=== PATIENT | female | born 1945 | race Caucasian/White ===

== ENCOUNTER → 2017-04-22 | Outpatient (CLI) | payer MEDICARE ==
--- NOTE | 2017-04-24 06:48 | MM ---
Reason for exam: screening (asymptomatic). Last mammogram was performed 1 year and 1 month ago. History: Patient is postmenopausal. Excisional biopsy of the right breast, 1998. Benign excisional biopsy of the right breast, 1984. Physical Findings: A clinical breast exam by your physician is recommended on an annual basis and results should be correlated with mammographic findings. MG 3D Screening Mammo W/Cad Bilateral CC and MLO view(s) were taken. Prior study comparison: March 20, 2016, bilateral MG 3d screening mammo w/cad. March 11, 2015, bilateral MG screening mammo w CAD. February 04, 2014, bilateral MG screening mammo w CAD. The breast tissue is almost entirely fat. Finding: There are typically benign, diffuse linear, coarse cathie -like bilateral calcifications. ASSESSMENT: Benign, BI-RAD 2 RECOMMENDATION: Routine screening mammogram of both breasts in 1 year.
== END | disposition home or self-care (01) ==
LOC: RADMAMWWP 13:35
PROVIDERS: ATTEND Internal Medicine
DX: Z12.31 Encounter for screening mammogram for malignant neoplasm of breast (principal)
CPT/HCPCS: 77063; 77067

== ENCOUNTER → 2017-08-09 | Outpatient (CLI) | payer MEDICARE ==
--- NOTE | 2017-08-09 15:10 | XR ---
EXAMINATION TYPE: XR lumbosacral spine min 4V DATE OF EXAM: 08/09/2017 CLINICAL HISTORY: pain COMPARISON: NONE TECHNIQUE: Frontal, lateral, and oblique images of the lumbar spine are obtained. FINDINGS: There are 5 lumbar type vertebral bodies identified. The lumbar spine shows satisfactory alignment without evidence of acute fracture or dislocation. Vertebral body heights are within normal limits. Severe vacuum disks noted at L1-2 and L2-3. Endplate sclerosis as well as associated spondyl osis. Lower lumbar facet joint arthropathy. Grade 1 anterolisthesis L5 on S1 measuring 6 mm. The over lying soft tissue appears unremarkable. IMPRESSION: No acute fracture or dislocation is seen in the lumbar spine.ICD 10 NO FRACTURE, INITIAL EVALUATION
== END | disposition home or self-care (01) ==
LOC: RADXRYALE 14:43
PROVIDERS: ATTEND Internal Medicine
DX: M54.5 Low back pain (principal)
CPT/HCPCS: 72110

== ENCOUNTER 2017-08-20 22:00 | Emergency (ER) | payer MEDICARE ==
[2017-08-20] MEDS ORDERED: KETOROLAC 30 MG/ML 1 ML VIAL IVP STA (23:04)
--- NOTE | 2017-08-20 23:06 | ED ---
Back Pain HPI - General Chief Complaint: Back Pain/Injury Stated Complaint: back pain Time Seen by Provider: 08/20/17 22:37 Source: patient, RN notes reviewed Limitations: no limitations - History of Present Illness Initial Comments: This is a 72-year-old female who presents to the emergency department chief complaint of left-sided low back pain. Patient states that she's been experiencing low back pain for the past one month. She states that she followed up with her doctor and had a lumbar x-ray performed. She states she has been taking Flexeril and Naprosyn. She states that this has helped minimally. Denies any saddle paresthesias, loss of bladder or bowel function, numbness or tingling. Denies fevers or chills, chest pain or shortness breath, abdominal pain, nausea or vomiting, dysuria hematuria, diarrhea or constipation. She states the pain is positional, increasing with rotation and going from a sitting to standing position. She states that she has difficulty getting comfortable at night to sleep. - Related Data Home Medications Medication Instructions Recorded Confirmed Metoprolol Tartrate [Lopressor] 50 mg PO BID 08/20/17 08/20/17 Multivitamins, Thera [Multivitamin 1 tab PO DAILY 08/20/17 08/20/17 (formulary)] Naproxen 500 mg PO BID 08/20/17 08/20/17 PARoxetine HCL [PARoxetine HCL ER] 37.5 mg PO DAILY 08/20/17 08/20/17 Pantoprazole Sodium 40 mg PO DAILY 08/20/17 08/20/17 Pravastatin Sodium [Pravachol] 40 mg PO HS 08/20/17 08/20/17 Previous Rx's Medication Instructions Recorded traMADol HCL [Ultram] 50 mg PO Q4HR PRN #12 tab 08/21/17 Allergies Allergy/AdvReac Type Severity Reaction Status Date / Time celecoxib [From Celebrex] Allergy Rash/Hives Verified 08/20/17 23:10 Review of Systems ROS Statement: Those systems with pertinent positive or pertinent negative responses have been documented in the HPI. ROS Other: All systems not noted in ROS Statement are negative. Past Medical History Past Medical History: Hyperlipidemia, Hypertension Additional Past Medical History / Comment(s): back pain History of Any Multi-Drug Resistant Organisms: None Reported Past Surgical History: Cholecystectomy Additional Past Surgical History / Comment(s): shoulder, knee replace Past Psychological History: No Psychological Hx Reported, Anxiety Smoking Status: Former smoker Past Alcohol Use History: None Reported Past Drug Use History: None Reported General Exam - General Exam Comments Initial Comments: General: Awake and alert, well-developed; in no apparent distress. is at bedside. HEENT: Head atraumatic, normocephalic. Pupils are equal, round and reactive to light. Extraocular movements intact. Oropharynx moist without erythema or exudate. Neck: Supple. Normal ROM. Cardiovascular: Regular rate and rhythm. No murmurs, rubs or gallops. Chest symmetrical. Respiratory: Lungs clear to auscultation bilaterally. No wheezes, rales or rhonchi. Normal respiratory effort with no use of accessory muscles. Abdomen: Soft, non-tender, non-distended. No rigidity, rebound or guarding. Normal bowel sounds in all 4 quadrants. Musculoskeletal: Normal ROM, no tenderness bilateral upper and lower extremities. Ambulating normally. Normal range of motion of the spine. There is tenderness on palpation of left paraspinal muscles. Pedal pulses are 2+ equal and palpable bilaterally. Skin: Farber, warm and dry without rashes or lesions. Neurological: Alert and oriented x3. CN II-XII grossly intact. Speech is fluent and answers are appropriate. No focal neuro deficits. Psychiatric: Normal mood and affect. No overt signs of depression or anxiety noted. Limitations: no limitations Course Vital Signs 08/20/17 08/21/17 22:02 00:33 Temperature 97.8 F Pulse Rate 97 80 Respiratory 18 20 Rate Blood Pressure 147/76 165/81 O2 Sat by Pulse 98 96 Oximetry Medical Decision Making - Medical Decision Making This is a 72-year-old female presents to the emergency department with chief complaint of back pain for 1 month. Patient denies any specific injuries, trauma or falls. She states that she's been having left-sided back pain that is positional and increases with movement. On physical examination, patient does have tenderness on palpation of the left lumbar paraspinal muscles. She is neurovascularly intact. She was evaluated twice by Dr. Walter, her primary care provider and has been taking Flexeril and Naprosyn. She states that a lumbar x-ray was obtained and that she is scheduled for an MRI on the of this month. I did review the report for patient's lumbar spine x-ray and it did indicate no evidence for acute changes. Patient presents because she states that the pain has not been getting any better. CBC, CMP and UA were unremarkable. A computed tomography scan of the abdomen and pelvis was obtained and revealed a nonobstructing calculus of the left kidney, however no major findings to account for patient's back pain. It does appear the patient' s back pain is musculoskeletal in nature. This case was discussed with attending physician, Dr. Cuevas. Patient will be prescribed a 2 days worth of Ultram. On review of MAPS, patient was recently prescribed Ultram. I addressed this with the patient and she states that her prescription was never sent to the pharmacy so she has not been taking this medication. Recommended heating pad, rest and stretching exercises. Patient's vital signs are stable and she is in no acute distress. She'll be discharged home at this time. All questions answered. - Lab Data Result diagrams: 08/20/17 22:49 08/20/17 22:49 Lab Results 08/20/17 08/20/17 08/20/17 Range/Units 22:49 22:49 23:06 WBC 8.1 (3.8-10.6) k/uL RBC 4.39 (3.80-5.40) m/uL Hgb 14.3 (11.4-16.0) gm/dL Hct 42.4 (34.0-46.0) % MCV 96.5 (80.0-100.0) fL MCH 32.6 (25.0-35.0) pg MCHC 33.7 (31.0-37.0) g/dL RDW 13.8 (11.5-15.5) % Plt Count 220 (150-450) k/uL Neutrophils % 58 % Lymphocytes % 28 % Monocytes % 7 % Eosinophils % 3 % Basophils % 1 % Neutrophils # 4.7 (1.3-7.7) k/uL Lymphocytes # 2.3 (1.0-4.8) k/uL Monocytes # 0.6 (0-1.0) k/uL Eosinophils # 0.3 (0-0.7) k/uL Basophils # 0.1 (0-0.2) k/uL Sodium 141 (137-145) mmol/L Potassium 4.1 (3.5-5.1) mmol/L Chloride 105 (98-107) mmol/L Carbon Dioxide 24 (22-30) mmol/L Anion Gap 12 mmol/L BUN 23 H (7-17) mg/dL Creatinine 0.80 (0.52-1.04) mg/dL Est GFR (CKD-EPI)AfAm 85 (>60 ml/min/1.73 sqM) Est GFR (CKD-EPI)NonAf 74 (>60 ml/min/1.73 sqM) Glucose 97 (74-99) mg/dL Calcium 9.2 (8.4-10.2) mg/dL Total Bilirubin 0.6 (0.2-1.3) mg/dL AST 18 (14-36) U/L ALT 24 (9-52) U/L Alkaline Phosphatase 47 (38-126) U/L Total Protein 6.6 (6.3-8.2) g/dL Albumin 3.8 (3.5-5.0) g/dL Urine Color Yellow Urine Appearance Clear (Clear) Urine pH 6.0 (5.0-8.0) Ur Specific [place] 1.021 (1.001-1.035) Urine Protein Trace H (Negative) Urine Glucose (UA) Negative (Negative) Urine Ketones Negative (Negative) Urine Blood Negative (Negative) Urine Nitrite Negative (Negative) Urine Bilirubin Negative (Negative) Urine Urobilinogen 3.0 (<2.0) mg/dL Ur Leukocyte Esterase Small H (Negative) Urine RBC <1 (0-5) /hpf Urine WBC 1 (0-5) /hpf Ur Squamous Epith Cells 1 (0-4) /hpf Hyaline Casts 4 H (0-2) /lpf Urine Mucus Rare H (None) /hpf - Radiology Data Radiology results: report reviewed CT abdomen and pelvis with contrast impression: There is probably a nonobstructing calculus in the left kidney. Small right renal cortical cyst. Cholecystectomy. I do not see a cause for left lower quadrant pain. Disposition Clinical Impression: Low back pain Disposition: HOME SELF-CARE Condition: Good Instructions: Acute Low Back Pain (ED) Additional Instructions: Please take medications as prescribed. Please follow up with primary care provider within 1-2 days. Return to emergency department if symptoms should worsen or any concerns arise. Prescriptions: traMADol HCL [Ultram] 50 mg PO Q4HR PRN #12 tab PRN Reason: Pain Is patient prescribed a controlled substance at d/c from ED?: Yes If prescribed controlled substance>3 days was MAPS reviewed?: Yes When asked, does pt state using other controlled substances?: No Referrals: Veronica Walter MD [Primary Care Provider] - 1-2 days Time of Disposition: 00:43
[2017-08-20 23:14] LABS: Appearance,Urine Clear (Clear); Bilirubin,Urine Negative (Negative); Blood,Urine Negative (Negative); Color,Urine Yellow; Glucose,Urine (UA) Negative (Negative); Hyaline Casts,Urine 4 /lpf (0-2); Ketones,Urine Negative (Negative); Leukocyte Esterase,Urine Small (Negative); Mucus,Urine Rare /hpf; Nitrite,Urine Negative (Negative); Protein,Urine Trace (Negative); RBC,Urine <1 /hpf (0-5); Specific Gravity,Urine 1.021 (1.001-1.035); Squamous Epithelial Cell,Urine 1 /hpf (0-4); WBC,Urine 1 /hpf (0-5)
[2017-08-20 23:17] LABS: Albumin 3.8 g/dL (3.5-5.0); Basophils # (A) 0.1 k/uL (0-0.2); Basophils % (A) 1 %; Calcium 9.2 mg/dL (8.4-10.2); Eosinophils # (A) 0.3 k/uL (0-0.7); Eosinophils % (A) 3 %; HCT 42.4 % (34.0-46.0); HGB 14.3 gm/dL (11.4-16.0); Lymphocytes # (A) 2.3 k/uL (1.0-4.8); Lymphocytes % (A) 28 %; MCH 32.6 pg (25.0-35.0); MCHC 33.7 g/dL (31.0-37.0); MCV 96.5 fL (80.0-100.0); Mean Platelet Volume 6.4; Monocytes # (A) 0.6 k/uL (0-1.0); Monocytes % (A) 7 %; Neutrophils # (A) 4.7 k/uL (1.3-7.7); Neutrophils % (A) 58 %; Platelet Count 220 k/uL (150-450); Potassium 4.1 mmol/L (3.5-5.1); RBC 4.39 m/uL (3.80-5.40); RDW 13.8 % (11.5-15.5); Total Bilirubin 0.6 mg/dL (0.2-1.3); Total Protein 6.6 g/dL (6.3-8.2); WBC 8.1 k/uL (3.8-10.6)
[2017-08-20] MEDS ORDERED: RX INFO: IV CONTRAST WAS GIVEN 1 EACH MISC MISCELLANE PRN (23:29)
--- NOTE | 2017-08-21 00:21 | CT ---
EXAMINATION TYPE: CT abdomen pelvis w con DATE OF EXAM: 08/20/2017 COMPARISON: NONE HISTORY: Back pain, Left flank pain CT DLP: 1907.00 mGycm Automated exposure control for dose reduction was used. TECHNIQUE: Helical acquisition of images was performed from the lung bases through the pelvis. CONTRAST: Performed without Oral Contrast and with IV Contrast, patient injected with 100 mL of Isovue 300. FINDINGS: Lung bases are clear. There is no pleural effusion. Heart size is normal. Liver spleen pancreas appear normal. There are clips from cholecystectomy. Bile ducts are not dilated . There is no adrenal mass. The kidneys show satisfactory contrast opacification. There is no hydroneph rosis. There is possible 5 mm calculus in the interpolar left kidney. Abdominal aorta is atheromatous . There is no retroperitoneal adenopathy. There is no ascites. There is no sign of free air. Bladder distends smoothly. There is no evidence of a pelvic mass. Appendix appears normal. I see no bony destructive process. There are some spondylotic changes in the thoracic and lumbar spine. There is a 2 cm cortical cyst on the lower pole right kidney. IMPRESSION: THERE IS PROBABLY A NONOBSTRUCTING CALCULUS IN THE LEFT KIDNEY. SMALL RIGHT RENAL CORTICAL CYST. CHOL ECYSTECTOMY. I DO NOT SEE A CAUSE FOR LEFT LOWER QUADRANT PAIN.
[2017-08-21] MEDS ORDERED: KETOROLAC 30 MG/ML 1 ML VIAL IVP STA (00:24)
[2017-08-21 00:34] VITALS: BP 165/81; PULSE 80; RESP 20
[2017-08-21 00:36] VITALS: TEMP 98.7
== END 2017-08-21 00:50 | disposition home or self-care (01) ==
LOC: EC 22:00
DX: M54.5 Low back pain (principal); N28.1 Cyst of kidney, acquired; N20.0 Calculus of kidney; E78.5 Hyperlipidemia, unspecified; I10 Essential (primary) hypertension; F41.9 Anxiety disorder, unspecified; Z87.891 Personal history of nicotine dependence; Z79.1 Long term (current) use of non-steroidal anti-inflammatories (NSAID); Z79.899 Other long term (current) drug therapy; Z90.49 Acquired absence of other specified parts of digestive tract; Z88.6 Allergy status to analgesic agent
CPT/HCPCS: 36415; 80053; 85025; 81001; 74177; 99284; 96374; 96376; J1885 ×2; Q9967

== ENCOUNTER → 2018-05-20 | Outpatient (CLI) | payer MEDICARE ==
--- NOTE | 2018-05-21 10:02 | MM ---
Reason for exam: screening (asymptomatic). Last mammogram was performed 1 year and 1 month ago. History: Patient is postmenopausal. Excisional biopsy of the right breast, 1998. Benign excisional biopsy of the right breast, 1984. Physical Findings: A clinical breast exam by your physician is recommended on an annual basis and results should be correlated with mammographic findings. MG 3D Screening Mammo W/Cad Bilateral CC and MLO view(s) were taken. Prior study comparison: April 22, 2017, bilateral MG 3d screening mammo w/cad. March 20, 2016, bilateral MG 3d screening mammo w/cad. There are scattered fibroglandular densities. Secretory calcifications seen bilaterally. There is no discrete abnormality. No significant changes when compared with prior studies. ASSESSMENT: Benign, BI-RAD 2 RECOMMENDATION: Routine screening mammogram of both breasts in 1 year.
== END | disposition home or self-care (01) ==
LOC: RADMAMWWP 14:30
PROVIDERS: ATTEND Internal Medicine
DX: Z12.31 Encounter for screening mammogram for malignant neoplasm of breast (principal)
CPT/HCPCS: 77063; 77067

== ENCOUNTER → 2019-06-10 | Outpatient (CLI) | payer MEDICARE ==
--- NOTE | 2019-06-12 13:19 | MM ---
Reason for exam: screening (asymptomatic). Last mammogram was performed 1 year and 1 month ago. History: Patient is postmenopausal. Excisional biopsy of the right breast, 1998. Benign excisional biopsy of the right breast, 1984. Physical Findings: A clinical breast exam by your physician is recommended on an annual basis and results should be correlated with mammographic findings. MG 3D Screening Mammo W/Cad Bilateral CC and MLO view(s) were taken. Prior study comparison: May 20, 2018, bilateral MG 3d screening mammo w/cad. April 22, 2017, bilateral MG 3d screening mammo w/cad. There are scattered fibroglandular densities. There is chronic nodularity in the left breast. Extensive benign secretory calcifications. No significant changes when compared with prior studies. ASSESSMENT: Negative, BI-RAD 1 RECOMMENDATION: Routine screening mammogram of both breasts in 1 year.
== END | disposition home or self-care (01) ==
LOC: RADMAMWWP 14:59
PROVIDERS: ATTEND Internal Medicine
DX: Z12.31 Encounter for screening mammogram for malignant neoplasm of breast (principal)
CPT/HCPCS: 77063; 77067

== ENCOUNTER 2020-06-10 13:38 | Emergency (ER) | payer MEDICARE ==
[2020-06-10] MEDS ORDERED: MORPHINE SULFATE 4 MG/ML SYRINGE IV STA (13:47)
[2020-06-10] MEDS ORDERED: SODIUM CHLORIDE 0.9% 1,000 ML IV STA (13:47)
--- NOTE | 2020-06-10 14:04 | ED ---
Abdominal Pain HPI - General Chief Complaint: Abdominal Pain Stated Complaint: Kidney stone Source: patient, RN notes reviewed Mode of arrival: ambulatory - History of Present Illness Initial Comments: Patient is a 74-year-old female presents to emergency department with diagnosis of kidney stone on 06/05/2020. She noted that she was fine for a couple days but then the pain comes and goes. She noted that currently she is a 5 out of 10 and did take pain medication as morning. She denied any nausea vomiting but just wasn't sure if this was a normal course for delivery of a kidney stone. She denied any discomfort or distress while sitting up in the bed during the exam and interview. She denied any chest pain shortness of breath nausea vomiting diarrhea constipation fever fatigue chills - Related Data Home Medications Medication Instructions Recorded Confirmed Metoprolol Tartrate [Lopressor] 50 mg PO BID 08/20/17 08/20/17 Multivitamins, Thera [Multivitamin 1 tab PO DAILY 08/20/17 08/20/17 (formulary)] Naproxen 500 mg PO BID 08/20/17 08/20/17 PARoxetine HCL [PARoxetine HCL ER] 37.5 mg PO DAILY 08/20/17 08/20/17 Pantoprazole Sodium 40 mg PO DAILY 08/20/17 08/20/17 Pravastatin Sodium [Pravachol] 40 mg PO HS 08/20/17 08/20/17 Previous Rx's Medication Instructions Recorded traMADol HCL [Ultram] 50 mg PO Q4HR PRN #12 tab 08/21/17 Ibuprofen [Motrin] 800 mg PO Q8HR PRN #30 tab 06/10/20 Allergies Allergy/AdvReac Type Severity Reaction Status Date / Time celecoxib [From Celebrex] Allergy Rash/Hives Verified 06/10/20 13:43 Review of Systems ROS Statement: Those systems with pertinent positive or pertinent negative responses have been documented in the HPI. ROS Other: All systems not noted in ROS Statement are negative. Past Medical History Past Medical History: Hyperlipidemia, Hypertension Additional Past Medical History / Comment(s): back pain, kidney stone History of Any Multi-Drug Resistant Organisms: None Reported Past Surgical History: Cholecystectomy Additional Past Surgical History / Comment(s): shoulder, knee replace Past Psychological History: No Psychological Hx Reported, Anxiety Smoking Status: Never smoker Past Alcohol Use History: None Reported Past Drug Use History: None Reported General Exam General appearance: alert, in no apparent distress, obese Head exam: Present: atraumatic, normocephalic, normal inspection Eye exam: Present: normal appearance, PERRL, EOMI. Absent: scleral icterus, conjunctival injection, periorbital swelling Neck exam: Present: normal inspection. Absent: tenderness, meningismus, lym phadenopathy Respiratory exam: Present: normal lung sounds bilaterally. Absent: respiratory distress, wheezes, rales, rhonchi, stridor Cardiovascular Exam: Present: regular rate, normal rhythm, normal heart sounds. Absent: systolic murmur, diastolic murmur, rubs, gallop, clicks GI/Abdominal exam: Present: soft, normal bowel sounds. Absent: distended, tenderness, guarding, rebound, rigid Extremities exam: Present: normal inspection, full ROM, normal capillary refill. Absent: tenderness, pedal edema, joint swelling, calf tenderness Back exam: Present: normal inspection, CVA tenderness (L) Psychiatric exam: Present: normal affect, normal mood Skin exam: Present: warm, dry, intact, normal color. Absent: rash Course Vital Signs 06/10/20 13:40 Temperature 98.4 F Pulse Rate 79 Respiratory 22 Rate Blood Pressure 151/104 O2 Sat by Pulse 96 Oximetry Medical Decision Making - Medical Decision Making 74-year-old female complaining of kidney stone pain in the left flank. Labs, 1 L normal saline, 4 mg of morphine, KUB ordered. X-ray: Unremarkable Case discussed with Dr. Mosqueda, decided was located discharge patient home with conservative management. - Lab Data Result diagrams: 06/10/20 14:12 06/10/20 14:12 Lab Results 06/10/20 06/10/20 06/10/20 Range/Units 14:12 14:12 15:05 WBC 13.7 H (3.8-10.6) k/uL RBC 4.09 (3.80-5.40) m/uL Hgb 13.1 (11.4-16.0) gm/dL Hct 39.3 (34.0-46.0) % MCV 96.2 (80.0-100.0) fL MCH 32.0 (25.0-35.0) pg MCHC 33.2 (31.0-37.0) g/dL RDW 13.5 (11.5-15.5) % Plt Count 236 (150-450) k/uL MPV 7.1 Neutrophils % 66 % Lymphocytes % 19 % Monocytes % 8 % Eosinophils % 5 % Basophils % 1 % Neutrophils # 9.0 H (1.3-7.7) k/uL Lymphocytes # 2.6 (1.0-4.8) k/uL Monocytes # 1.1 H (0-1.0) k/uL Eosinophils # 0.7 (0-0.7) k/uL Basophils # 0.1 (0-0.2) k/uL Sodium 140 (137-145) mmol/L Potassium 4.3 (3.5-5.1) mmol/L Chloride 103 (98-107) mmol/L Carbon Dioxide 25 (22-30) mmol/L Anion Gap 12 mmol/L BUN 15 (7-17) mg/dL Creatinine 0.87 (0.52-1.04) mg/dL Est GFR (CKD-EPI)AfAm 76 (>60 ml/min/1.73 sqM) Est GFR (CKD-EPI)NonAf 66 (>60 ml/min/1.73 sqM) Glucose 101 H (74-99) mg/dL Calcium 9.2 (8.4-10.2) mg/dL Total Bilirubin 0.5 (0.2-1.3) mg/dL AST 20 (14-36) U/L ALT 13 (4-34) U/L Alkaline Phosphatase 55 (38-126) U/L Total Protein 7.4 (6.3-8.2) g/dL Albumin 4.3 (3.5-5.0) g/dL Urine Color Yellow Urine Appearance Clear (Clear) Urine pH 6.0 (5.0-8.0) Ur Specific [place] 1.022 (1.001-1.035) Urine Protein 1+ H (Negative) Urine Glucose (UA) Negative (Negative) Urine Ketones Negative (Negative) Urine Blood Negative (Negative) Urine Nitrite Negative (Negative) Urine Bilirubin Negative (Negative) Urine Urobilinogen 2.0 (<2.0) mg/dL Ur Leukocyte Esterase Large H (Negative) Urine RBC 15 H (0-5) /hpf Urine WBC 39 H (0-5) /hpf Ur Squamous Epith Cells 1 (0-4) /hpf Hyaline Casts 1 (0-2) /lpf Urine Mucus Occasional H (None) /hpf - Radiology Data Radiology results: report reviewed, image reviewed Chest Xray: Nonspecific abdomen, suspicious renal or ureteral stones are not identified. Disposition Clinical Impression: Nephrolithiasis, Left flank pain Disposition: HOME SELF-CARE Condition: Stable Instructions (If sedation given, give patient instructions): Kidney Stones (E D), Abdominal Pain (ED) Additional Instructions: Please return to the Emergency Department if symptoms worsen or any other concerns. Continue to increase oral fluid intake. Follow-up with primary care 1-2 days. Kidney stone may take several days to couple weeks to pass. Management with [id number] pain medication. Prescriptions: Ibuprofen [Motrin] 800 mg PO Q8HR PRN #30 tab PRN Reason: Pain Is patient prescribed a controlled substance at d/c from ED?: No Referrals: Veronica Walter MD [Primary Care Provider] - 1-2 days Time of Disposition: 15:27
[2020-06-10] MEDS ORDERED: ONDANSETRON 4 MG/2 ML VIAL IVP STA (14:09)
--- NOTE | 2020-06-10 14:32 | XR ---
EXAMINATION TYPE: XR KUB DATE OF EXAM: 06/10/2020 COMPARISON: None INDICATION: Abdomen pain left-sided kidney stone TECHNIQUE: Single view abdomen upright view FINDINGS: There is nonspecific bowel gas pattern. No suspicious air-fluid levels or differential air-fluid leve ls are evident. No free air is evident. Psoas margins are normal. No organomegaly is present. Cholecystectomy clips in the right upper quadrant. Costochondral cartilage calcification is present. Degenerative narrowing of the bilateral hips is evident. There is a scoliosis and degenerative disc c hanges through the lumbar spine. IMPRESSION: 1. Nonspecific abdomen. 2. Suspicious renal or ureteral stones are not identified.
[2020-06-10 14:45] LABS: Basophils # (A) 0.1 k/uL (0-0.2); Basophils % (A) 1 %; Eosinophils # (A) 0.7 k/uL (0-0.7); Eosinophils % (A) 5 %; HCT 39.3 % (34.0-46.0); HGB 13.1 gm/dL (11.4-16.0); Lymphocytes # (A) 2.6 k/uL (1.0-4.8); Lymphocytes % (A) 19 %; MCHC 33.2 g/dL (31.0-37.0); MCV 96.2 fL (80.0-100.0); Mean Platelet Volume 7.1; Monocytes # (A) 1.1 k/uL (0-1.0); Monocytes % (A) 8 %; Neutrophils % (A) 66 %; Platelet Count 236 k/uL (150-450); RBC 4.09 m/uL (3.80-5.40); RDW 13.5 % (11.5-15.5); WBC 13.7 k/uL (3.8-10.6)
[2020-06-10 15:04] LABS: Albumin 4.3 g/dL (3.5-5.0); Calcium 9.2 mg/dL (8.4-10.2); Potassium 4.3 mmol/L (3.5-5.1); Total Bilirubin 0.5 mg/dL (0.2-1.3); Total Protein 7.4 g/dL (6.3-8.2)
[2020-06-10 15:17] LABS: Appearance,Urine Clear (Clear); Bilirubin,Urine Negative (Negative); Blood,Urine Negative (Negative); Color,Urine Yellow; Glucose,Urine (UA) Negative (Negative); Hyaline Casts,Urine 1 /lpf (0-2); Ketones,Urine Negative (Negative); Leukocyte Esterase,Urine Large (Negative); Mucus,Urine Occasional /hpf; Nitrite,Urine Negative (Negative); Protein,Urine 1+ (Negative); RBC,Urine 15 /hpf (0-5); Specific Gravity,Urine 1.022 (1.001-1.035); Squamous Epithelial Cell,Urine 1 /hpf (0-4); WBC,Urine 39 /hpf (0-5)
[2020-06-10 15:50] VITALS: BP 154/74; PULSE 78; RESP 16; TEMP 97
== END 2020-06-10 15:48 | disposition home or self-care (01) ==
LOC: EC 13:38
DX: N20.0 Calculus of kidney (principal); E78.5 Hyperlipidemia, unspecified; I10 Essential (primary) hypertension; Z79.1 Long term (current) use of non-steroidal anti-inflammatories (NSAID); Z79.899 Other long term (current) drug therapy; Z87.442 Personal history of urinary calculi; Z88.6 Allergy status to analgesic agent
CPT/HCPCS: 99284; 96374; 96375; 36415; 80053; 85025; 81001; 87086; 74018; J2270; J2405

== ENCOUNTER 2020-06-14 12:22 | Day surgery (SDC) | payer MEDICARE ==
[2020-06-13 11:19] VITALS: BMI 39.1
--- NOTE | 2020-06-13 20:05 | P.GSHP ---
History of Present Illness H&P Date: 06/13/20 74 yo female sent from [place] because of an 8 mm proximal left ureteral stone When she was seen in the office last week her pain was minimal She was interested in eswl but the pain returned over the weekend. She wishes treatment and therefore we will do a left ureteroscopy with laser lithotripsy. the risks have been discussed. - Constitutional Constitutional: Denies chills, Denies fever - EENT Eyes: denies blurred vision, denies pain Ears, nose, mouth and throat: Denies headache, Denies sore throat - Cardiovascular Cardiovascular: Denies chest pain, Denies shortness of breath - Respiratory Respiratory: Denies cough, Denies 7 - Gastrointestinal Gastrointestinal: Denies abdominal pain, Denies diarrhea, Denies nausea, Denies vomiting - Genitourinary (Female) Genitourinary: Denies dysuria, Denies hematuria - Genitourinary (Male) Genitourinary: Denies dysuria, Denies hematuria - Musculoskeletal Musculoskeletal: Denies myalgias - Integumentary Integumentary: Denies pruritus, Denies rash - Neurological Neurological: Denies numbness, Denies weakness - Psychiatric Psychiatric: Denies anxiety, Denies depression - Endocrine Endocrine: Denies fatigue, Denies weight change Past Medical History Past Medical History: COPD, Hyperlipidemia, Hypertension, Osteoarthritis (OA) Additional Past Medical History / Comment(s): back pain, kidney stone. History of Any Multi-Drug Resistant Organisms: None Reported Past Surgical History: Cholecystectomy Additional Past Surgical History / Comment(s): Bilat. shoulder, bilat knee replace, carpal tunnel Past Anesthesia/Blood Transfusion Reactions: No Reported Reaction Smoking Status: Never smoker - Past Family History Mother Family Medical History: No Reported History Sister(s) Family Medical History: Pulmonary Embolus Brother(s) Family Medical History: Cancer Medications and Allergies Home Medications Medication Instructions Recorded Confirmed Type Metoprolol Tartrate [Lopressor] 50 mg PO BID 08/20/17 06/13/20 History Multivitamins, Thera [Multivitamin 1 tab PO DAILY 08/20/17 06/13/20 History (formulary)] Naproxen 500 mg PO BID 08/20/17 06/13/20 History PARoxetine HCL [PARoxetine HCL ER] 37.5 mg PO DAILY 08/20/17 06/13/20 History Pantoprazole Sodium 40 mg PO DAILY 08/20/17 06/13/20 History Pravastatin Sodium [Pravachol] 40 mg PO HS 08/20/17 06/13/20 History traMADol HCL [Ultram] 50 mg PO Q4HR PRN #12 tab 08/21/17 06/13/20 Rx Ibuprofen [Motrin] 800 mg PO Q8HR PRN #30 tab 06/10/20 06/13/20 Rx Inhaler(Unknown Name) 1 dose INHALATION DAILY PRN 06/13/20 06/13/20 History Allergies Allergy/AdvReac Type Severity Reaction Status Date / Time celecoxib [From Celebrex] Allergy Rash/Hives Verified 06/13/20 10:59 Surgical - Exam - General mild distress well developed, well nourished - Eyes PERRL - ENT no hearing loss - Neck trachea midline - Respiratory normal expansion, normal respiratory effort - Cardiovascular Rhythm: regular - Abdomen Abdomen: soft, non tender - Integumentary no rash, no growths - Neurologic normal coordination, normal sensation - Musculoskeletal normal gait, normal posture - Psychiatric oriented to time, oriented to person, oriented to place, speech is normal, memory intact Results - Imaging Abdominal x-ray: report reviewed, image reviewed CT scan - abdomen: report reviewed, image reviewed CT scan - pelvis: report reviewed, image reviewed Assessment and Plan Assessment: Impression: Left ureteral stone with obstrution and pain Plan. Left ureteroscopy with laser lithotripsy and possible stent placement
[~2020-06-14 12:22] MED LIST: AMPICILLIN 1,000 MG in SODIUM CHLORIDE 0.9% 50 ML IVPB PRN; DEXAMETHASONE SOD PHOSPHATE 4 MG/ML 1 ML VIAL IV ONE; GENTAMICIN 120 MG in SODIUM CHLORIDE 0.9% 100 ML IVPB PRN; LACTATED RINGERS 1,000 ML IV SCH; LIDOCAINE 1% (10MG/ML) FOR IV START INTRADERMA PRN; ONDANSETRON 4 MG/2 ML VIAL IVP ONE
--- NOTE | 2020-06-14 13:08 | XR ---
EXAMINATION TYPE: XR KUB DATE OF EXAM: 06/14/2020 12:58 PM CLINICAL HISTORY: Left ureter calculus. TECHNIQUE: Two Upright KUB images of the abdomen are obtained. COMPARISON: Abdominal x-ray [address] abdomen and pelvis August 20, 2017. FINDINGS: No renal calculi clearly seen similar to recent x-ray. Cholecystectomy clips are redemonstrated. Overall nonobstructive bowel gas pattern redemonstrated. Tr ansitional type vertebra lumbosacral junction again seen. IMPRESSION: As above. No significant change from recent x-ray.
[2020-06-14] MEDS ORDERED: LACTATED RINGERS 1,000 ML IV ONE ×2 (13:39→15:22)
[2020-06-14] MEDS ORDERED: ONDANSETRON 4 MG/2 ML VIAL ONE (13:45)
[2020-06-14] MEDS ORDERED: LIDOCAINE 1% (10MG/ML) FOR IV START INTRADERMA ONE (13:53)
[2020-06-14] MEDS ORDERED: ROCURONIUM 10 MG/ML (5 ML VIAL) IV ONE (14:32)
[2020-06-14] MEDS ORDERED: ALBUTEROL HFA INHALER INHALATION ONE (14:32)
[2020-06-14] MEDS ORDERED: PROPOFOL 10 MG/ML 20 ML VIAL IV ONE (14:32)
[2020-06-14] MEDS ORDERED: fentaNYL (PF) 50 MCG/ML 2 ML AMP ONE (14:32)
[2020-06-14] MEDS ORDERED: SUCCINYLCHOLINE CHLORIDE 100 MG/5 ML SYR IV ONE (14:32)
[2020-06-14] MEDS ORDERED: GLYCOPYRROLATE 0.2 MG/ML 2 ML VIAL ONE (14:32)
[2020-06-14] MEDS ORDERED: LIDOCAINE 1% INJ 10MG/ML (20 ML MDV) ONE (14:32)
[2020-06-14] MEDS ORDERED: NEOSTIGMINE 1 MG/ML 10 ML VIAL ONE (14:32)
--- NOTE | 2020-06-14 15:17 | P.OP ---
Date of Procedure: 06/14/20 Preoperative Diagnosis: Left ureteral stone with obstruction Postoperative Diagnosis: Same Procedure(s) Performed: Cystoscopy, left ureteroscopy laser lithotripsy, placement of 6 x 24 double-J catheter Anesthesia: EVANGELIST Surgeon: Abhi Monk Estimated Blood Loss (ml): 0 Pathology: none sent Condition: stable Disposition: PACU Indications for Procedure: The patient is a 74-year-old female with an 8 mm proximal left ureteral stone with obstruction. She's having persistent pain. We discussed treatment options and elected to proceed with ureteroscopy and laser lithotripsy Description of Procedure: The patient was brought to the operating suite. She's given general endotracheal anesthesia. She's placed lithotomy position with sterile prep and drape. Cystoscopy Foroblique lens and 21-Divehi sheath identifies normal urethra. Both ureteral orifices are normal. The bladder mucosa is unremarkable. The stone was seen under fluoroscopy. I passed a 7-Divehi mini ureteroscope up to just distal to the stone. I passed an 035 wire through the scope beyond the stone. I then over the wire pass a scope up to the stone. With the 200 laser probe the stone was broken into fine sand. Due to the edema I'll place a double-J catheter up. I move the ureteroscope. Over the wires passed a 6 x 24 double-J catheter that coils in the renal pelvis and the bladder. the bladder is drained and the patient awake and returned recovery room good condition. She will be discharged home upon recovery and follow in the office in one week for stent removal.
[2020-06-14 15:33] VITALS: RESP 16; TEMP 97.9
--- NOTE | 2020-06-14 15:43 | FL ---
EXAMINATION TYPE: FL guidance operating room DATE OF EXAM: 06/14/2020 CLINICAL HISTORY: Left-sided kidney stone. TECHNIQUE: Fluoroscopy. COMPARISON: None. FINDINGS: Fluoroscopic guidance was provided during left kidney stone treatment and ureter stent ins ertion procedure performed by Dr. Monk. A total of 7 seconds of fluoroscopic time was utilized duri ng the procedure and single spot intraoperative image is acquired. Single image acquired short proximal portion of the double-J left ureter stent. IMPRESSION: As Above.
[2020-06-14 16:23] VITALS: PULSE 76
[2020-06-14 16:42] VITALS: BP 157/89
== END 2020-06-14 16:54 | disposition home or self-care (01) ==
LOC: OR 12:22
PROVIDERS: ATTEND Urology
DX: N20.1 Calculus of ureter (principal); J44.9 Chronic obstructive pulmonary disease, unspecified; E78.5 Hyperlipidemia, unspecified; I10 Essential (primary) hypertension; M19.90 Unspecified osteoarthritis, unspecified site; Z80.9 Family history of malignant neoplasm, unspecified; Z84.89 Family history of other specified conditions; Z79.899 Other long term (current) drug therapy; Z88.8 Allergy status to other drugs, medicaments and biological substances
CPT/HCPCS: 74018; 52356; C2625; C1769; J1100; J2710; J2405; J2001; J3010; J1580; J0290; J0330; J2704

== ENCOUNTER → 2020-08-16 | Outpatient (CLI) | payer MEDICARE ==
--- NOTE | 2020-08-16 14:08 | BD ---
EXAMINATION TYPE: Axial Bone Density DATE OF EXAM: 08/16/2020 COMPARISON: 09.10.2006 CLINICAL HISTORY: 75 YR OLD FEMALE.....ICD-10 CODE: N95.8 MENOPAUSAL Height: 64.5 Weight: 245 FRAX RISK QUESTIONS: Family History (Parent hip fracture): YES Glucocorticoids (More than 3mos): YES (Ex: prednisone, prednisolone, methylprednisolone, dexamethasone, and hydrocortisone). RISK FACTORS HISTORY OF: Family History of Osteoporosis: YES, HER MOTHER, WITH HIP FX Postmenopausal woman: YES, AT AGE 51 Lost more than 2 inches in height since high school: YES Frequent falls: ELDERLY, UNSTEADY Hyperparathyroidism: NO Adrenal Insufficiency: NO MEDICATIONS: Prednisone or other steroids: YES, FOR ASTHMA FOR ABOUT 2-3 YRS NOW Additional Medications: BP MEDS, PAXIL, REFLUX MEDS, STATIN FOR CHOLESTEROL, VIT D AND CALCIUM Additional History: HYPERTENSION, ARTHRITIS, REFLUX, CHOLESTEROL AND ASTHMA EXAM MEASUREMENTS: Bone mineral densitometry was performed using the [employer] System. Bone mineral density as measured about the Lumbar spine is: ----- L1-L4(G/cm2): 1.841 T Score Values are as follows: ----- L1: 9.0 ----- L2: 7.0 ----- L3: 5.0 ----- L4: 2.9 ----- L1-L4: 5.5 Bone mineral density has: Increased 22.6% since study of: 09.10.2006 Bone mineral density about the R hip (g/cm2): 1.274 Bone mineral density about the L hip (g/cm2): 1.309 T Score values are as follows: -----R Neck: 1.3 -----L Neck: 1.7 -----R Total: 2.1 -----L Total: 2.4 Bone mineral density has: Increased 2.0% since study of: 09.10.2006 FRAX%s: THERE IS A 9.9% CHANCE FOR A MAJOR OSTEOPOROTIC FX AND A 1.5% FOR HIP.....PROBABILITY FOR FX IN 10 YRS TIME IMPRESSION: Normal (Values between +1 and -1 indicate normal bone mass). Consider repeating this study in 5 year s or sooner if there is some new clinical indication. NOTE: T-SCORE=SD OF THE YOUNG ADULT MEAN.
--- NOTE | 2020-08-17 13:30 | MM ---
Reason for exam: screening (asymptomatic). Last mammogram was performed 1 year and 2 months ago. History: Patient is postmenopausal. Excisional biopsy of the right breast, 1998. Benign excisional biopsy of the right breast, 1984. Physical Findings: A clinical breast exam by your physician is recommended on an annual basis and results should be correlated with mammographic findings. MG 3D Screening Mammo W/Cad Bilateral CC and MLO view(s) were taken. Prior study comparison: June 10, 2019, bilateral MG 3d screening mammo w/cad. May 20, 2018, bilateral MG 3d screening mammo w/cad. There are scattered fibroglandular densities. Bilateral secretory calcifications. There is no discrete abnormality. No significant changes when compared with prior studies. ASSESSMENT: Benign, BI-RAD 2 RECOMMENDATION: Routine screening mammogram of both breasts in 1 year.
== END | disposition home or self-care (01) ==
LOC: RADMAMWWP 12:23
PROVIDERS: ATTEND Internal Medicine
DX: Z12.31 Encounter for screening mammogram for malignant neoplasm of breast (principal); Z13.820 Encounter for screening for osteoporosis; Z78.0 Asymptomatic menopausal state
CPT/HCPCS: 77063; 77067; 77080

== ENCOUNTER → 2021-08-31 | Outpatient (CLI) | payer MEDICARE ==
--- NOTE | 2021-09-01 15:33 | MM ---
Reason for Exam: Screening (asymptomatic). Last screening mammogram was performed 12 month(s) ago. Patient History: Menarche at age 11. First Full-Term at age 20. Postmenopausal. 1998, Excisional Biopsy on the Right side. 1984, Benign Excisional Biopsy on the right side. Risk Values: Tracee 5 year model risk: 2.3%. NCI Lifetime model risk: 4.5%. Film Views: Bilateral CC views were taken. Bilateral MLO views were taken. Prior Study Comparison: 05/20/2018 Bilateral Screening Mammogram, [facility]. 06/10/2019 Bilateral Screening Mammogram, [facility]. 08/16/2020 Bilateral Screening Mammogram, [facility]. Tissue Density: There are scattered fibroglandular densities. Findings: There are regional benign-appearing linear calcifications throughout both breasts. There is no suspicious group of microcalcifications or new suspicious mass in either breast. Overall Assessment: Benign, BI-RAD 2 Management: Screening Mammogram of both breasts in 1 year. A clinical breast exam by your physician is recommended on an annual basis and results should be correlated with mammographic findings. Electronically signed and approved by: Shahab Sheehan M.D.
== END | disposition home or self-care (01) ==
LOC: RADMAMWWP 18:35
PROVIDERS: ATTEND Internal Medicine
DX: Z12.31 Encounter for screening mammogram for malignant neoplasm of breast (principal)
CPT/HCPCS: 77063; 77067

== ENCOUNTER → 2022-10-04 | Outpatient (CLI) | payer MEDICARE, OTHER ==
--- NOTE | 2022-10-05 17:12 | MM ---
Reason for Exam: Screening (asymptomatic). Last mammogram was performed 1 year(s) and 1 month(s) ago. Patient History: Menarche at age 11. First Full-Term at age 20. Postmenopausal. 1998, Excisional Biopsy on the Right side. 1984, Benign Excisional Biopsy on the right side. Risk Values: Tracee 5 year model risk: 2.3%. NCI Lifetime model risk: 4.1%. Prior Study Comparison: 06/10/2019 Bilateral Screening Mammogram, [facility]. 08/16/2020 Bilateral Screening Mammogram, [facility]. 08/31/2021 Bilateral MG 3D screening mammo w/cad, [facility]. Tissue Density: The breast tissue is almost entirely fat. Findings: Analyzed By CAD. Pattern appears stable. There is extensive linear benign-appearing calcifications bilaterally. No suspicious groups of microcalcifications, spiculated or lobular masses, architectural distortion or other secondary signs of malignancy are mammographically apparent. Overall Assessment: Benign, BI-RAD 2 Management: Screening Mammogram of both breasts in 1 year. A negative mammogram report should not preclude additional follow up of suspicious palpable abnormalities. Patient should continue monthly self breast exam. A clinical breast exam by your physician is recommended on an annual basis and results should be correlated with mammographic findings. Electronically signed and approved by: Irineo Davenport D.O. Radiologis
== END | disposition home or self-care (01) ==
LOC: RADMAMWWP 16:30
PROVIDERS: ATTEND Internal Medicine
DX: Z12.31 Encounter for screening mammogram for malignant neoplasm of breast (principal); Z78.0 Asymptomatic menopausal state
CPT/HCPCS: 77063; 77067

== ENCOUNTER → 2022-12-17 | Outpatient (CLI) | payer MEDICARE ==
[2022-12-17 13:51] LABS: African American GFR (CKD) 81 (>60 ml/min/1.73 sqM); Blood Urea Nitrogen 17 mg/dL (7-17); Non-African American GFR(CKD) 70 (>60 ml/min/1.73 sqM)
--- NOTE | 2022-12-17 15:06 | CT ---
EXAMINATION TYPE: CT chest w con CT DLP: 506.30 mGycm, Automated exposure control for dose reduction was used. DATE OF EXAM: 12/17/2022 2:47 PM COMPARISON: . Chest radiograph from 06/29/2022 CLINICAL INDICATION:Female, 77 years old with history of J18.1 LOBAR PNEUMONIA, UNSPECIFIED ORGANISM; PHH, Lobar pneumonia, COPD TECHNIQUE: Multiple axial images were obtained through the chest following the administration of 100 cc of Isovue 300. . Coronal and sagittal reformats reviewed. FINDINGS: LUNGS/ PLEURA: No pleural effusion, pneumothorax, focal consolidation. Calcified granuloma within the left midlung. Left upper lobe 4 mm pulmonary nodule (series 4, image 11). Left apical 5.6 mm linear pulmonary nodule (series 4, image 8). Left upper lobe 2.5 mGycm or pulmonary nodule (series 4, image 11). Calcified granuloma within the anterior right upper lobe. Linear scarring within the right uppe r lobe AIRWAY: Patent and unremarkable.. HEART: Size within normal limits. Mild coronary artery calcifications. No pericardial effusion. Aorti c valvular and mitral annulus calcifications. MEDIASTINUM: No evidence of adenopathy. Calcified right hilar lymph node. VASCULATURE: No aortic aneurysm. MUSCULOSKELETAL: No acute osseous abnormalities. Bilateral shoulder arthroplasty changes. Advanced de generative changes of the lumbar spine. SOFT TISSUES/LYMPH NODES: Unremarkable. LOWER NECK: No significant findings. UPPER ABDOMEN: Post cholecystectomy changes. Small hiatal hernia. IMPRESSION: 1. No acute thoracic process. 2. Few pulmonary nodules measuring up to 5.6 mm. Anterolateral. Patient, no follow-up is recommended. In a high-risk patient consider optional CT chest in 1 year. 3. Sequelae of prior granulomatous disease. Pulmonary nodules measuring less than 6 mm. Incidentally detected nodules of this size are generally considered benign in individuals without concomitant risk factors such as smoking history or other ri sk factors for malignancy. Follow up imaging is generally not performed, in accordance with Fleischne r Society guidelines. In high-risk patients, a [address] thorax can be considered.
== END | disposition home or self-care (01) ==
LOC: RADCTMAIN 13:12
PROVIDERS: ATTEND Internal Medicine Critical Care Medicine
DX: J18.1 Lobar pneumonia, unspecified organism (principal); R91.8 Other nonspecific abnormal finding of lung field
CPT/HCPCS: 82565; 84520; 71260; 36415; Q9967

== ENCOUNTER → 2023-07-30 | Outpatient (CLI) | payer MEDICARE ==
--- NOTE | 2023-07-31 14:38 | MR ---
EXAMINATION TYPE: MR lumbar spine wo con DATE OF EXAM: 07/30/2023 COMPARISON: NONE at this institution. HISTORY: Unable to stand, leg pain. Lumbar radiculopathy. TECHNIQUE: Multiplanar, multisequence imaging of the lumbar spine is performed without IV contrast. FINDINGS: Sagittal images of the lumbar spine show vertebral body height to appear satisfactory. Ther e is grade 1 retrolisthesis L1 on L2 and L2 on L3. Multilevel disc desiccation is present. Moderate t o advanced disc space narrowing and spurring with heterogeneous Modic type II endplate changes at T12 -L1 and L1-L2 levels. Mild to moderate disc space narrowing at L2-L3 and L3-L4 levels. The conus medu llaris is normal in position and signal ending at upper L1 level. Small posterior disc herniations a t T10-T11 and T11-T12 level mildly effacing the anterior thecal sac. Axial images at T12-L1 level shows spondylolisthesis with moderate broad disc bulge mildly effacing t he anterior thecal sac. There is mild to moderate facet arthropathy and ligament flavum hypertrophy e ffacing left posterior lateral thecal sac. Axial images at L1-L2 level show spondylolisthesis with right paracentral spur disc complex effacing the anterior thecal sac and [id number] facet arthropathy and ligament flavum hypertrophy effaci ng right lateral thecal sac. There is mild right-sided neural foraminal narrowing. Axial images at L2-L3 levels with spondylolisthesis moderate to severe broad-based disc bulge having right paracentral component. There is [id number] facet arthropathy bilaterally. There is efface ment of the anterior thecal sac. There is moderate to severe right and moderate left-sided neural for aminal narrowing. Axial images at L3-L4 level shows moderate to advanced facet arthropathy bilaterally effacing the casie ateral posterior lateral thecal sac. There is moderate disc bulge effacing the anterior thecal sac. T here is moderate to severe right and [id number] left-sided neural foraminal narrowing. Encroach ment on right L3 nerve is seen sagittal image 12. Axial images at L4-L5 level shows subtle spondylolisthesis with moderate to advanced facet arthropath y and ligamentum flavum hypertrophy effacing bilateral posterior lateral thecal sac. Bilateral neural foramina are patent. Axial images at L5-S1 level shows moderate facet arthropathy bilaterally. Spinal canal is preserved. Bilateral neural foramina are patent. Paraspinal muscle bulk is maintained. IMPRESSION: Multilevel spondylolisthesis and degenerative change in the lumbar spine as detailed abo darby.
== END | disposition home or self-care (01) ==
LOC: RADMRIMAIN 19:10
PROVIDERS: ATTEND Internal Medicine
DX: M43.16 Spondylolisthesis, lumbar region (principal); M47.26 Other spondylosis with radiculopathy, lumbar region
CPT/HCPCS: 72148

== ENCOUNTER → 2023-11-01 | Outpatient (CLI) | payer MEDICARE, OTHER ==
--- NOTE | 2023-11-04 08:25 | MM ---
Reason for Exam: Screening (asymptomatic). Last mammogram was performed 1 year(s) and 1 month(s) ago. Patient History: Menarche at age 11. First Full-Term at age 20. Postmenopausal. 1998, Excisional Biopsy on the Right side. 1984, Benign Excisional Biopsy on the right side. Risk Values: Tracee 5 year model risk: 2.3%. NCI Lifetime model risk: 3.8%. Prior Study Comparison: 08/16/2020 Bilateral Screening Mammogram, [facility]. 08/31/2021 Bilateral MG 3D screening mammo w/cad, [facility]. 10/04/2022 Bilateral MG 3D screening mammo w/cad, [facility]. Tissue Density: The breasts are almost entirely fatty. Findings: Analyzed By CAD. There is no suspicious group of microcalcifications or new suspicious mass in either breast. Overall Assessment: Benign, BI-RAD 2 Management: Screening Mammogram of both breasts in 1 year. . Patient should continue monthly self-breast exams. A clinical breast exam by your physician is recommended on an annual basis. This exam should not preclude additional follow-up of suspicious palpable abnormalities. Note on Tracee scores and lifetime risk: 1. A Tracee score greater than 3% is considered moderate risk. If this is the case, consider specialist referral to assess eligibility for a risk reducing agent. 2. If overall lifetime risk for the development of breast cancer is 20% or higher, the patient may qualify for future screening with alternating mammogram and breast MRI. Electronically signed and approved by: Iain Gale M.D. Radiologis
== END | disposition home or self-care (01) ==
LOC: RADMAMWWP 15:34
PROVIDERS: ATTEND Internal Medicine
DX: Z12.31 Encounter for screening mammogram for malignant neoplasm of breast (principal); R92.313 Mammographic fatty tissue density, bilateral breasts; Z78.0 Asymptomatic menopausal state
CPT/HCPCS: 77063; 77067

== ENCOUNTER 2023-12-30 11:42 | Inpatient (IN) | payer MEDICARE, OTHER ==
--- NOTE | 2023-12-30 11:51 | ED ---
SOB HPI - General Chief Complaint: Shortness of Breath Stated Complaint: Asthma Time Seen by Provider: 12/30/23 11:48 Source: patient, RN notes reviewed, old records reviewed Mode of arrival: EMS Limitations: no limitations - History of Present Illness Initial Comments: This is a 78-year-old female to the ER for evaluation of severe COPD exacerbation with exertional dyspnea and shortness of breath here in the ER persistent. Sent to emergency department by wireless cellular technician Complaint: shortness of breath -: days(s) Severity: moderate, severe Severity scale (1-10): 7 Consistency: constant Improves With: nothing Worsens With: nothing Known History Of: COPD, asthma Context: recent URI, anxiety, recent illness - Related Data Home Medications Medication Instructions Recorded Confirmed Metoprolol Tartrate [Lopressor] 50 mg PO BID 08/20/17 12/30/23 Pravastatin Sodium [Pravachol] 40 mg PO HS 08/20/17 12/30/23 ALPRAZolam [Xanax] 0.25 mg PO BID PRN 12/30/23 12/30/23 Albuterol Nebulized [Ventolin 2.5 mg INHALATION RT-TID 12/30/23 12/30/23 Nebulized] Budesonide/Glycopyr/Formoterol 2 puff INHALATION RT-BID 12/30/23 12/30/23 [Breztri Aerosphere Inhaler] Escitalopram [Lexapro] 10 mg PO DAILY 12/30/23 12/30/23 Krill/Om-3/Dha/Epa/Phospho/Ast 1 cap PO DAILY 12/30/23 12/30/23 [[place]-3 Krill Oil 300 mg Sfgl] Losartan Potassium [Cozaar] 100 mg PO DAILY 12/30/23 12/30/23 Multivit-Min/FA/Lycopen/Lutein 1 tab PO DAILY 12/30/23 12/30/23 [Centrum Silver Tablet] Rosuvastatin [Crestor] 20 mg PO DAILY 12/30/23 12/30/23 Ubidecarenone [Coenzyme Q10] 100 mg PO DAILY 12/30/23 12/30/23 Previous Rx's Medication Instructions Recorded Furosemide [Lasix] 40 mg PO DAILY #30 tab 01/04/24 Pantoprazole Sodium [Protonix] 40 mg PO BID #60 tab 01/04/24 amLODIPine [Norvasc] 10 mg PO DAILY 30 Days #30 tab 01/04/24 predniSONE 10 mg PO DIRECTED #40 tab 01/04/24 Allergies Allergy/AdvReac Type Severity Reaction Status Date / Time celecoxib [From Celebrex] Allergy Rash/Hives Verified 12/30/23 15:26 Review of Systems ROS Statement: Those systems with pertinent positive or pertinent negative responses have been documented in the HPI. ROS Other: All systems not noted in ROS Statement are negative. Past Medical History Past Medical History: Asthma, COPD, Hyperlipidemia, Hypertension, Osteoarthritis (OA) Additional Past Medical History / Comment(s): back pain, kidney stone. History of Any Multi-Drug Resistant Organisms: None Reported Past Surgical History: Cholecystectomy Additional Past Surgical History / Comment(s): Bilat. shoulder, bilat knee replace, carpal tunnel Past Anesthesia/Blood Transfusion Reactions: No Reported Reaction Past Psychological History: Anxiety Smoking Status: Former smoker Past Alcohol Use History: None Reported Past Drug Use History: None Reported - Past Family History Mother Family Medical History: No Reported History Sister(s) Family Medical History: Pulmonary Embolus Brother(s) Family Medical History: Cancer General Exam General appearance: anxious Head exam: Present: atraumatic, normocephalic, normal inspection Eye exam: Present: normal appearance, PERRL, EOMI. Absent: scleral icterus, conjunctival injection, periorbital swelling ENT exam: Present: normal exam, mucous membranes moist Neck exam: Present: normal inspection. Absent: tenderness, meningismus, lymphadenopathy Respiratory exam: Present: respiratory distress, wheezes, accessory muscle use, decreased breath sounds, prolonged expiratory. Absent: rales, rhonchi, stridor Cardiovascular Exam: Present: regular rate, normal rhythm, normal heart sounds. Absent: systolic murmur, diastolic murmur, rubs, gallop, clicks GI/Abdominal exam: Present: soft, normal bowel sounds. Absent: distended, tenderness, guarding, rebound, rigid Extremities exam: Present: normal inspection, full ROM, normal capillary refill. Absent: tenderness, pedal edema, joint swelling, calf tenderness Back exam: Present: normal inspection Neurological exam: Present: alert, oriented X3, CN II-XII intact Psychiatric exam: Present: normal affect, normal mood Skin exam: Present: warm, dry, intact, normal color. Absent: rash Course Vital Signs 12/30/23 12/30/23 12/30/23 11:43 12:23 12:36 Temperature Pulse Rate 96 94 101 H Respiratory 20 Rate Blood Pressure 164/75 O2 Sat by Pulse 98 Oximetry 12/30/23 12/30/23 12/30/23 14:51 15:00 15:14 Temperature 98.7 F Pulse Rate 99 65 100 Respiratory 20 20 Rate Blood Pressure 146/79 O2 Sat by Pulse 98 97 Oximetry 12/30/23 12/30/23 12/30/23 15:23 16:00 20:56 Temperature Pulse Rate 99 75 108 H Respiratory 20 Rate Blood Pressure 145/65 O2 Sat by Pulse 97 Oximetry 12/30/23 12/30/23 12/30/23 21:10 21:41 23:40 Temperature Pulse Rate 112 H 86 100 Respiratory 20 18 Rate Blood Pressure 171/86 150/83 O2 Sat by Pulse 96 96 Oximetry 12/31/23 12/31/23 12/31/23 05:01 08:57 08:59 Temperature Pulse Rate 107 H 114 H Respiratory 18 Rate Blood Pressure 160/88 O2 Sat by Pulse 97 96 Oximetry 12/31/23 09:10 Temperature Pulse Rate 121 H Respiratory Rate Blood Pressure O2 Sat by Pulse Oximetry - Reevaluation(s) Reevaluation #1: 12/30/23 13:52 Medical records reviewed Reevaluation #2: 12/30/23 13:52 Patient symptoms improved Reevaluation #3: 12/30/23 13:53 Patient informed of results and questions answered Reevaluation #4: Was pt. sent in by a medical professional or institution (, PA, ENVIRONMENTAL MARKETING REPRESENTATIVE, urgent care, hospital, or long-term...) When possible be specific @ -no Did you speak to anyone other than the patient for history (EMS, parent, family, police, friend...)? What history was obtained from this source @ -no Did you review nursing and triage notes (agree or disagree)? Why? @ -agree Are old charts reviewed (outside hosp., previous admission, EMS record, old EKG, old radiological studies, urgent care reports/EKG's, long-term records)? Report findings @ -yes Differential Diagnosis (chest pain, altered mental status, abdominal pain women, abdominal pain men, vaginal bleeding, weakness, fever, dyspnea, syncope, headache, dizziness, GI bleed, back pain, seizure, CVA, palpatations, mental health, musculoskeletal)? @ -prior EKG interpreted by me (3pts min.). @ -yes X-rays interpreted by me (1pt min.). @ -yes negative for acute disease CT interpreted by me (1pt min.). @ -no U/S interpreted by me (1pt. min.). @ -no What testing was considered but not performed or refused? (CT, X-rays, U/S, labs)? Why? @ -none What meds were considered but not given or refused? Why? @ -none Did you discuss the management of the patient with other professionals (professionals i.e. DrJeannette, PA, ENVIRONMENTAL MARKETING REPRESENTATIVE, lab, RT, psych nurse, social sciences instructor, wine steward/stewardess, teacher, learning and development officer, director case management)? Give summary @ -no Was smoking cessation discussed for >3mins.? @ -no Was critical care preformed (if so, how long)? @ -no Were there social determinants of health that impacted care today? How? (Homelessness, low income, unemployed, alcoholism, drug addiction, transportation, low edu. Level, literacy, decrease access to med. care, [place] [facility], rehab)? @ -none Was there de-escalation of care discussed even if they declined (Discuss DNR or withdrawal of care, Hospice)? DNR status @ -no What co-morbidities impacted this encounter? (DM, HTN, Smoking, COPD, CAD, Cancer, CVA, ARF, Chemo, Hep., AIDS, mental health diagnosis, sleep apnea, morbid obesity)? @ -none Was patient admitted / discharged? Hospital course, mention meds given and route, prescriptions, significant lab abnormalities, going to OR and other pertinent info. @ - 78 Female to ER for evaluation of severe COPD exacerbation patient will be admitted for COPD exacerbation breathing treatments and supportive care Admitted Undiagnosed new problem with uncertain prognosis? @ -no Drug Therapy requiring intensive monitoring for toxicity (Heparin, Nitro, Insulin, Cardizem)? @ -no Were any procedures done? @ -no Diagnosis/symptom? @ -COPD Acute, or Chronic, or Acute on Chronic? @ -Acute Uncomplicated (without systemic symptoms) or Complicated (systemic symptoms)? @ -Complicated Side effects of treatment? @ -no Exacerbation, Progression, or Severe Exacerbation? @ -exacerbation Poses a threat to life or bodily function? How? (Chest pain, USA, PA, pneumonia, PE, COPD, DKA, ARF, appy, cholecystitis, CVA, Diverticulitis, Homicidal, Suicidal, threat to staff... and all critical care pts) @ -yes Reevaluation #5: Differential Dyspnea: Coronary syndrome, arrhythmia, tamponade, asthma, COPD, pulmonary embolism, pneu monia, pneumothorax, pulmonary effusion, anaphylaxis, diabetic ketoacidosis, flailed chest, pulmonary contusion, diaphragmatic rupture, anemia, neuromuscular, this is not meant to be an all-inclusive list. - Consultations Consultation #1: Spoke with admitting physicians who agreed to admit this patient Medical Decision Making - Medical Decision Making 78 Female to ER for evaluation of severe COPD exacerbation patient will be admitted for COPD exacerbation breathing treatments and supportive care - Lab Data Result diagrams: 01/03/24 06:00 01/03/24 06:00 Lab Results 12/30/23 12/30/23 12/30/23 Range/Units 12:07 12:07 12:07 WBC 12.9 H (3.8-10.6) k/uL RBC 2.78 L (3.80-5.40) m/uL Hgb 7.6 L (11.4-16.0) gm/dL Hct 24.9 L (34.0-46.0) % MCV 89.5 (80.0-100.0) fL MCH 27.3 (25.0-35.0) pg MCHC 30.6 L (31.0-37.0) g/dL RDW 16.2 H (11.5-15.5) % Plt Count 345 (150-450) k/uL MPV 7.2 Immature Gran % (Auto) % Absolute Nucleated RBC % Neutrophils % 65 % Lymphocytes % 19 % Monocytes % 10 % Eosinophils % 3 % Basophils % 0 % Immature Gran # (0.00-0.04) X 10*3/uL Neutrophils # 8.4 H (1.3-7.7) k/uL Lymphocytes # 2.4 (1.0-4.8) k/uL Monocytes # 1.4 H (0-1.0) k/uL Eosinophils # 0.4 (0-0.7) k/uL Basophils # 0.1 (0-0.2) k/uL NRBC/100 WBC Diff (0.00-0.01) X 10*3/uL Hypochromasia Marked Poikilocytosis Anisocytosis Slight PT 10.8 (10.0-12.5) sec INR 1.0 (<1.2) APTT 22.0 (22.0-30.0) sec Sodium 135 L (137-145) mmol/L Potassium 4.4 (3.5-5.1) mmol/L Chloride 108 H (98-107) mmol/L Carbon Dioxide 23 (22-30) mmol/L Anion Gap 4 mmol/L BUN 20 H (7-17) mg/dL Creatinine 0.83 (0.52-1.04) mg/dL Est GFR (CKD-EPI) (>=60) Est GFR (CKD-EPI)AfAm 78 (>60 ml/min/1.73 sqM) Est GFR (CKD-EPI)NonAf 68 (>60 ml/min/1.73 sqM) BUN/Creatinine Ratio (12.00-20.00) Ratio Glucose 86 (74-99) mg/dL Calcium 8.6 (8.4-10.2) mg/dL Phosphorus (2.4-5.1) mg/dL Magnesium (1.5-2.4) mg/dL Iron (50-170) UG/DL TIBC (228-460) UG/DL % Saturation (12.00-45.00) Transferrin (204.0-354.0) mg/dL Ferritin (10.0-291.0) ng/mL Total Bilirubin 0.5 (0.2-1.3) mg/dL AST 19 (14-36) U/L ALT 11 (4-34) U/L Alkaline Phosphatase 67 (38-126) U/L Troponin I (0.000-0.034) ng/mL NT-Pro-B Natriuret Pep 1780 pg/mL Total Protein 6.4 (6.3-8.2) g/dL Albumin 3.8 (3.5-5.0) g/dL Globulin (1.6-3.3) g/dL Albumin/Globulin Ratio (1.60-3.17) Ratio Vitamin B12 (200.0-944.0) pg/mL Folate (4.40-31.00) ng/mL Procalcitonin (0.02-0.50) ng/mL Influenza Type A (PCR) (Not Detectd) Influenza Type B (PCR) (Not Detectd) RSV (PCR) (Not Detectd) SARS-CoV-2 (PCR) (Not Detectd) 12/30/23 12/30/23 12/30/23 Range/Units 12:07 12:07 12:07 WBC (3.8-10.6) k/uL RBC (3.80-5.40) m/uL Hgb (11.4-16.0) gm/dL Hct (34.0-46.0) % MCV (80.0-100.0) fL MCH (25.0-35.0) pg MCHC (31.0-37.0) g/dL RDW (11.5-15.5) % Plt Count (150-450) k/uL MPV Immature Gran % (Auto) % Absolute Nucleated RBC % Neutrophils % % Lymphocytes % % Monocytes % % Eosinophils % % Basophils % % Immature Gran # (0.00-0.04) X 10*3/uL Neutrophils # (1.3-7.7) k/uL Lymphocytes # (1.0-4.8) k/uL Monocytes # (0-1.0) k/uL Eosinophils # (0-0.7) k/uL Basophils # (0-0.2) k/uL NRBC/100 WBC Diff (0.00-0.01) X 10*3/uL Hypochromasia Poikilocytosis Anisocytosis PT (10.0-12.5) sec INR (<1.2) APTT (22.0-30.0) sec Sodium (137-145) mmol/L Potassium (3.5-5.1) mmol/L Chloride (98-107) mmol/L Carbon Dioxide (22-30) mmol/L Anion Gap mmol/L BUN (7-17) mg/dL Creatinine (0.52-1.04) mg/dL Est GFR (CKD-EPI) (>=60) Est GFR (CKD-EPI)AfAm (>60 ml/min/1.73 sqM) Est GFR (CKD-EPI)NonAf (>60 ml/min/1.73 sqM) BUN/Creatinine Ratio (12.00-20.00) Ratio Glucose (74-99) mg/dL Calcium (8.4-10.2) mg/dL Phosphorus (2.4-5.1) mg/dL Magnesium (1.5-2.4) mg/dL Iron 12 L (50-170) UG/DL TIBC 406 (228-460) UG/DL % Saturation 2.96 L (12.00-45.00) Transferrin 290.0 (204.0-354.0) mg/dL Ferritin 22.4 (10.0-291.0) ng/mL Total Bilirubin (0.2-1.3) mg/dL AST (14-36) U/L ALT (4-34) U/L Alkaline Phosphatase (38-126) U/L Troponin I <0.012 (0.000-0.034) ng/mL NT-Pro-B Natriuret Pep pg/mL Total Protein (6.3-8.2) g/dL Albumin (3.5-5.0) g/dL Globulin (1.6-3.3) g/dL Albumin/Globulin Ratio (1.60-3.17) Ratio Vitamin B12 694.0 (200.0-944.0) pg/mL Folate 27.10 (4.40-31.00) ng/mL Procalcitonin (0.02-0.50) ng/mL Influenza Type A (PCR) (Not Detectd) Influenza Type B (PCR) (Not Detectd) RSV (PCR) (Not Detectd) SARS-CoV-2 (PCR) (Not Detectd) 12/30/23 12/30/23 12/31/23 Range/Units 12:07 21:50 03:30 WBC 12.47 H (3.8-10.6) k/uL RBC 2.67 L (3.80-5.40) m/uL Hgb 7.4 L (11.4-16.0) gm/dL Hct 24.1 L (34.0-46.0) % MCV 90.3 (80.0-100.0) fL MCH 27.7 (25.0-35.0) pg MCHC 30.7 L (31.0-37.0) g/dL RDW 16.3 H (11.5-15.5) % Plt Count 281 (150-450) k/uL MPV 10.2 Immature Gran % (Auto) 1.80 % Absolute Nucleated RBC 0.20 % Neutrophils % 84.9 % Lymphocytes % 10.1 % Monocytes % 3.0 % Eosinophils % 0 % Basophils % 0.2 % Immature Gran # 0.23 H (0.00-0.04) X 10*3/uL Neutrophils # 10.57 H (1.3-7.7) k/uL Lymphocytes # 1.26 (1.0-4.8) k/uL Monocytes # 0.38 (0-1.0) k/uL Eosinophils # 0 L (0-0.7) k/uL Basophils # 0.03 (0-0.2) k/uL NRBC/100 WBC Diff 0.02 H (0.00-0.01) X 10*3/uL Hypochromasia Poikilocytosis Anisocytosis PT (10.0-12.5) sec INR (<1.2) APTT (22.0-30.0) sec Sodium (137-145) mmol/L Potassium (3.5-5.1) mmol/L Chloride (98-107) mmol/L Carbon Dioxide (22-30) mmol/L Anion Gap mmol/L BUN (7-17) mg/dL Creatinine (0.52-1.04) mg/dL Est GFR (CKD-EPI) (>=60) Est GFR (CKD-EPI)AfAm (>60 ml/min/1.73 sqM) Est GFR (CKD-EPI)NonAf (>60 ml/min/1.73 sqM) BUN/Creatinine Ratio (12.00-20.00) Ratio Glucose (74-99) mg/dL Calcium (8.4-10.2) mg/dL Phosphorus (2.4-5.1) mg/dL Magnesium (1.5-2.4) mg/dL Iron (50-170) UG/DL TIBC (228-460) UG/DL % Saturation (12.00-45.00) Transferrin (204.0-354.0) mg/dL Ferritin (10.0-291.0) ng/mL Total Bilirubin (0.2-1.3) mg/dL AST (14-36) U/L ALT (4-34) U/L Alkaline Phosphatase (38-126) U/L Troponin I (0.000-0.034) ng/mL NT-Pro-B Natriuret Pep pg/mL Total Protein (6.3-8.2) g/dL Albumin (3.5-5.0) g/dL Globulin (1.6-3.3) g/dL Albumin/Globulin Ratio (1.60-3.17) Ratio Vitamin B12 (200.0-944.0) pg/mL Folate (4.40-31.00) ng/mL Procalcitonin 0.06 (0.02-0.50) ng/mL Influenza Type A (PCR) Not Detected (Not Detectd) Influenza Type B (PCR) Not Detected (Not Detectd) RSV (PCR) Not Detected (Not Detectd) SARS-CoV-2 (PCR) Not Detected (Not Detectd) 12/31/23 01/01/24 01/01/24 Range/Units 03:30 06:15 06:15 WBC 21.1 H (3.8-10.6) k/uL RBC 2.70 L (3.80-5.40) m/uL Hgb 7.5 L (11.4-16.0) gm/dL Hct 23.9 L (34.0-46.0) % MCV 88.5 (80.0-100.0) fL MCH 27.8 (25.0-35.0) pg MCHC 31.4 (31.0-37.0) g/dL RDW 16.5 H (11.5-15.5) % Plt Count 345 (150-450) k/uL MPV 8.0 Immature Gran % (Auto) % Absolute Nucleated RBC % Neutrophils % 88 % Lymphocytes % 7 % Monocytes % 4 % Eosinophils % 0 % Basophils % 0 % Immature Gran # (0.00-0.04) X 10*3/uL Neutrophils # 18.5 H (1.3-7.7) k/uL Lymphocytes # 1.5 (1.0-4.8) k/uL Monocytes # 0.9 (0-1.0) k/uL Eosinophils # 0.0 (0-0.7) k/uL Basophils # 0.0 (0-0.2) k/uL NRBC/100 WBC Diff (0.00-0.01) X 10*3/uL Hypochromasia Moderate Poikilocytosis Slight Anisocytosis Slight PT (10.0-12.5) sec INR (<1.2) APTT (22.0-30.0) sec Sodium 138 138 (137-145) mmol/L Potassium 4.2 3.9 (3.5-5.1) mmol/L Chloride 102 107 (98-107) mmol/L Carbon Dioxide 22.2 25 (22-30) mmol/L Anion Gap 13.80 H 6 mmol/L BUN 20.3 19 H (7-17) mg/dL Creatinine 0.8 0.62 (0.52-1.04) mg/dL Est GFR (CKD-EPI) 75 (>=60) Est GFR (CKD-EPI)AfAm >90 (>60 ml/min/1.73 sqM) Est GFR (CKD-EPI)NonAf 86 (>60 ml/min/1.73 sqM) BUN/Creatinine Ratio 25.38 H (12.00-20.00) Ratio Glucose 146 H 128 H (74-99) mg/dL Calcium 8.3 L 8.7 (8.4-10.2) mg/dL Phosphorus 3.4 (2.4-5.1) mg/dL Magnesium 2.0 (1.5-2.4) mg/dL Iron (50-170) UG/DL TIBC (228-460) UG/DL % Saturation (12.00-45.00) Transferrin (204.0-354.0) mg/dL Ferritin (10.0-291.0) ng/mL Total Bilirubin <0.2 L (0.2-1.3) mg/dL AST 13 (14-36) U/L ALT 10 (4-34) U/L Alkaline Phosphatase 68 (38-126) U/L Troponin I (0.000-0.034) ng/mL NT-Pro-B Natriuret Pep pg/mL Total Protein 6.5 (6.3-8.2) g/dL Albumin 3.9 (3.5-5.0) g/dL Globulin 2.6 (1.6-3.3) g/dL Albumin/Globulin Ratio 1.50 L (1.60-3.17) Ratio Vitamin B12 (200.0-944.0) pg/mL Folate (4.40-31.00) ng/mL Procalcitonin (0.02-0.50) ng/mL Influenza Type A (PCR) (Not Detectd) Influenza Type B (PCR) (Not Detectd) RSV (PCR) (Not Detectd) SARS-CoV-2 (PCR) (Not Detectd) - EKG Data -: EKG Interpreted by Me (EKG is sinus 96 TX 170 QRS 77 QTc 407) - Radiology Data Radiology results: report reviewed (Chest x-ray is negative for acute disease), image reviewed Disposition Clinical Impression: Acute exacerbation of chronic obstructive pulmonary disease, Acute respiratory distress syndrome in adult, Anemia Disposition: ADMITTED IP TO THIS HOSP Condition: Serious Is patient prescribed a controlled substance at d/c from ED?: No Time of Disposition: 14:00
[2023-12-30 12:23] LABS: Anisocytosis Slight; Basophils # (A) 0.1 k/uL (0-0.2); Basophils % (A) 0 %; Eosinophils # (A) 0.4 k/uL (0-0.7); Eosinophils % (A) 3 %; HCT 24.9 % (34.0-46.0); HGB 7.6 gm/dL (11.4-16.0); Hypochromasia Marked; Lymphocytes # (A) 2.4 k/uL (1.0-4.8); Lymphocytes % (A) 19 %; MCH 27.3 pg (25.0-35.0); MCHC 30.6 g/dL (31.0-37.0); MCV 89.5 fL (80.0-100.0); Mean Platelet Volume 7.2; Monocytes # (A) 1.4 k/uL (0-1.0); Monocytes % (A) 10 %; Neutrophils # (A) 8.4 k/uL (1.3-7.7); Neutrophils % (A) 65 %; Platelet Count 345 k/uL (150-450); RBC 2.78 m/uL (3.80-5.40); RDW 16.2 % (11.5-15.5); WBC 12.9 k/uL (3.8-10.6)
[2023-12-30] MEDS: IPRATROPIUM-ALBUTEROL 3 ML NEB INHALATION STA ×2 (12:23→15:14)
[2023-12-30] MEDS: methylPREDNISolone SOD SUCCI 125 MG/2 ML VIAL IV STA (12:26)
[2023-12-30] MEDS: MORPHINE SULFATE 4 MG/ML SYRINGE IV STA (12:27)
[2023-12-30] MEDS: SODIUM CHLORIDE 0.9% 1,000 ML IV STA (12:28)
[2023-12-30 12:37] LABS: Prothrombin Time 10.8 sec (10.0-12.5)
[2023-12-30 12:44] LABS: ALT 11 U/L (4-34); AST 19 U/L (14-36); African American GFR (CKD) 78 (>60 ml/min/1.73 sqM); Albumin 3.8 g/dL (3.5-5.0); Alkaline Phosphatase 67 U/L (38-126); Anion Gap 4 mmol/L; Blood Urea Nitrogen 20 mg/dL (7-17); Calcium 8.6 mg/dL (8.4-10.2); Carbon Dioxide 23 mmol/L (22-30); Chloride 108 mmol/L (98-107); Glucose 86 mg/dL (74-99); Non-African American GFR(CKD) 68 (>60 ml/min/1.73 sqM); Potassium 4.4 mmol/L (3.5-5.1); Sodium 135 mmol/L (137-145); Total Bilirubin 0.5 mg/dL (0.2-1.3); Total Protein 6.4 g/dL (6.3-8.2)
[2023-12-30 12:49] LABS: NT-Pro-B-Type Natriuretic Pept 1780 pg/mL
--- NOTE | 2023-12-30 13:01 | XR ---
EXAMINATION TYPE: XR chest 1V portable DATE OF EXAM: 12/30/2023 COMPARISON: 05/14/2014 INDICATION: Short of breath TECHNIQUE: Single frontal view of the chest is obtained. FINDINGS: The heart size is normal. The pulmonary vasculature is normal. The lungs are clear. Bilateral older prostheses are present. IMPRESSION: 1. No acute pulmonary process. [facility], , 12/30/2023 12:59 PM
[2023-12-30] MEDS ORDERED: NALOXONE 0.4 MG/ML 1 ML VIAL IV PRN (13:45)
[2023-12-30] MEDS ORDERED: ONDANSETRON 4 MG/2 ML VIAL IVP PRN (13:45)
--- NOTE | 2023-12-30 14:47 | P.HPIM ---
History of Present Illness H&P Date: 12/30/23 History of present illness: 78-year-old female with past medical history significant for asthma, COPD, hypertension, hyperlipidemia, kidney stones, osteoarthritis, back pain who was sent to the ER by the PCP due to concern for hypoxia and acute COPD exacerbation. Patient stated that she was having shortness of breath going on for more than a week which was progressively getting worse. Patient stated that for the last 2 days her breathing has gotten rapidly worse, patient also complained of productive cough with thick yellow sputum, denied any fever or chills. Patient reported swelling of the lower extremities, denied any orthopnea or PND. Patient denied any sore throat, sick contacts, chest pain, palpitations, nausea vomiting diarrhea constipation abdominal pain dysuria urgency frequency weakness or numbness of extremities. Patient also reported that she was noticing black-colored stools, with occasional red blood in the stools. Patient reported that she had colonoscopy about 10 years ago. In the ED patient was afebrile, heart rate 96, respiratory rate 20, blood pressure 164/75, was saturating 98% on 2 L. WBC 12.9, hemoglobin 7.6 with no recent baseline, platelet 345. INR 1.0. Sodium 135, potassium 4.4, chloride 108, CO2 23, BUN 20, creatinine 0.83. LFTs unremarkable. Troponin negative. NT proBNP was elevated 1780. Chest x-ray negative for acute process. REVIEW OF SYSTEMS: CONSTITUTIONAL: No fever, no malaise, no fatigue. HEENT: No recent visual problems or hearing problems. Denied any sore throat. CARDIOVASCULAR: No chest pain, orthopnea, PND, no palpitations, no syncope. Complains of lower extremity swelling. PULMONARY: Complains of shortness of breath, productive cough. GASTROINTESTINAL: No diarrhea, no nausea, no vomiting, no abdominal pain. Complain of black loose stool, occasional mild bright red blood in stool. NEUROLOGICAL: No headaches, no weakness, no numbness. HEMATOLOGICAL: Denies any bleeding or petechiae. GENITOURINARY: Denies any burning micturition, frequency, or urgency. MUSCULOSKELETAL/RHEUMATOLOGICAL: Denies any joint pain, swelling, or any muscle pain. ENDOCRINE: Denies any polyuria or polydipsia. The rest of the 14-point review of systems is negative. PHYSICAL EXAMINATION: GENERAL: The patient is A&O x3, NAD HEENT: EOMI, Sclerae anicteric, Moist Mucous membranes Neck: Supple, Non tender, No JVD PULMONARY: bilateral wheezing and crackles. Decreased breath sound bilaterally. CARDIOVASCULAR: S1, S2 present. No murmurs, rubs, or gallops. ABDOMEN: Soft, nontender, nondistended, normoactive bowel sounds. No guarding or rebound tenderness. MUSCULOSKELETAL: +edema, No cyanosis. No clubbing. Normal ROM. Intact peripheral pulses. EXTREMITIES: No cyanosis, clubbing, or pedal edema. NEUROLOGICAL: CN 2-12 grossly intact. No FND Assessment and plan: Acute hypoxic respiratory failure: Acute COPD exacerbation: Acute diastolic CHF: Presented with progressive shortness of breath, productive cough. Chest x-ray negative for acute process. Continue DuoNeb, Pulmicort, Solu-Medrol Incentive spirometry, Mucinex. Azithromycin. Pulmonary consult. Anemia: Melena/hematochezia: Hemoglobin 7.6, no recent baseline Patient reported melena, occasional bright red blood in stools Check iron studies, B12, folate IV Protonix General Surgery consult Acute diastolic CHF: Patient appears fluid overloaded, bilateral crackles Elevated proBNP Check echocardiogram IV Lasix one-time dose Cardiac diet DVT prophylaxis SCD Monitor vital signs and labs Labs and medication were reviewed. Continue same treatment. Further recommendations as per clinical course of the patient Dictation was produced using [employer] dictation software. please excuse any grammatical, word or spelling errors. Past Medical History Past Medical History: Asthma, COPD, Hyperlipidemia, Hypertension, Osteoarthritis (OA) Additional Past Medical History / Comment(s): back pain, kidney stone. History of Any Multi-Drug Resistant Organisms: None Reported Past Surgical History: Cholecystectomy Additional Past Surgical History / Comment(s): Bilat. shoulder, bilat knee replace, carpal tunnel Past Anesthesia/Blood Transfusion Reactions: No Reported Reaction Past Psychological History: Anxiety Smoking Status: Former smoker Past Alcohol Use History: None Reported Past Drug Use History: None Reported - Past Family History Mother Family Medical History: No Reported History Sister(s) Family Medical History: Pulmonary Embolus Brother(s) Family Medical History: Cancer Medications and Allergies Home Medications Medication Instructions Recorded Confirmed Type Metoprolol Tartrate [Lopressor] 50 mg PO BID 08/20/17 06/13/20 History Multivitamins, Thera [Multivitamin 1 tab PO DAILY 08/20/17 06/13/20 History (formulary)] Naproxen 500 mg PO BID 08/20/17 06/13/20 History PARoxetine HCL [PARoxetine HCL ER] 37.5 mg PO DAILY 08/20/17 06/13/20 History Pantoprazole Sodium 40 mg PO DAILY 08/20/17 06/13/20 History Pravastatin Sodium [Pravachol] 40 mg PO HS 08/20/17 06/13/20 History traMADol HCL [Ultram] 50 mg PO Q4HR PRN #12 tab 08/21/17 06/13/20 Rx Ibuprofen [Motrin] 800 mg PO Q8HR PRN #30 tab 06/10/20 06/13/20 Rx Inhaler(Unknown Name) 1 dose INHALATION DAILY PRN 06/13/20 06/13/20 History Allergies Allergy/AdvReac Type Severity Reaction Status Date / Time celecoxib [From Celebrex] Allergy Rash/Hives Verified 12/30/23 11:47 Physical Exam Vitals: Vital Signs Pulse Resp BP Pulse Ox 12/30/23 12:36 101 H 12/30/23 12:23 94 12/30/23 11:43 96 20 164/75 98 Intake and Output 12/29/23 12/30/23 12/30/23 22:59 06:59 14:59 Other: Weight 90.718 kg Results CBC & Chem 7: 12/30/23 12:07 12/30/23 12:07 Labs: Abnormal Lab Results - Last 24 Hours (Table) 12/30/23 12/30/23 Range/Units 12:07 12:07 WBC 12.9 H (3.8-10.6) k/uL RBC 2.78 L (3.80-5.40) m/uL Hgb 7.6 L (11.4-16.0) gm/dL Hct 24.9 L (34.0-46.0) % MCHC 30.6 L (31.0-37.0) g/dL RDW 16.2 H (11.5-15.5) % Neutrophils # 8.4 H (1.3-7.7) k/uL Monocytes # 1.4 H (0-1.0) k/uL Sodium 135 L (137-145) mmol/L Chloride 108 H (98-107) mmol/L BUN 20 H (7-17) mg/dL
[2023-12-30] MEDS: SODIUM CHLORIDE 0.9% 1,000 ML IV SCH (15:07)
[2023-12-30] MEDS: AZITHROMYCIN 500 MG in SODIUM CHLORIDE 0.9% 250 ML IVPB SCH (15:14)
[2023-12-30] MEDS: PANTOPRAZOLE 40 MG/10 ML VIAL IVP SCH (15:16)
[2023-12-30] MEDS: FUROSEMIDE 10 MG/ML 4 ML VIAL IV STA (15:17)
[2023-12-30] MEDS: guaiFENesin 600 MG TABLET.ER PO SCH (15:17)
[2023-12-30] MEDS: BUDESONIDE 1 MG/2 ML NEBU INHALATION SCH (16:46)
[2023-12-30] MEDS: methylPREDNISolone SOD SUCCI 125 MG/2 ML VIAL IV SCH (18:52)
--- NOTE | 2023-12-30 20:50 | P.CNPUL ---
History of Present Illness Consult date: 12/30/23 Reason for consult: dyspnea History of present illness: This is a 78-year-old female patient with known history of COPD maintained on Breztri on an outpatient basis. The patient is coming into the hospital because of worsening shortness of breath. She had increased cough chest tightness and wheezing and over the past few days the patient became progressively more short of breath. For that reason, she ended up coming into the hospital for further advice. Noted the patient is known to have COPD. Her COPD has been mild and she has not required much of maintenance respiratory medication. She is also known to have hypertension hyperlipidemia. Back in 2022, the patient was hospitalized at [facility] for right lower lobe pneumonia. She ultimately recovered from that. My last evaluation with her was back in January 2023 and she showed complete clearing of the right lung pneumonia. She had a calcified pulmonary granuloma which was of no significant significance. Her current white cell count is at 12.9 with a hemoglobin of 7.6 and a platelet count of 345. Normal renal function and normal electrolytes. proBNP level is 1780. Chest x-ray was done in the emergency showed no acute cardiopulmonary process. She is currently on room air oxygen with a pulse ox of 97%. Review of Systems Constitutional: Reports daytime sleepiness, Reports fatigue, Reports weakness Eyes: denies as per HPI, denies blurred vision, denies bulging eye, denies decreased vision, denies diplopia, denies discharge, denies dry eye, denies irritation, denies itching, denies pain, denies photophobia, denies loss of peripheral vision, denies loss of vision, denies tunnel vision/blind spots Ears: deny: decreased hearing, ear discharge, earache, tinnitus Ears, nose, mouth and throat: Reports as per HPI Breasts: absent: as per HPI, change in shape, gynecomastia, masses, nipple discharge, pain, skin changes, swelling Cardiovascular: Reports decreased exercise tolerance, Reports dyspnea on exertion Respiratory: Reports cough, Reports dyspnea, Reports excessive sputum, Reports wheezing Gastrointestinal: Reports as per HPI Genitourinary: Reports as per HPI Menstruation: Reports as per HPI Musculoskeletal: Reports as per HPI Musculoskeletal: absent: ankle pain, ankle stiffness, ankle swelling, as per HPI, elbow pain, elbow stiffness, elbow swelling, foot pain, foot stiffness, foot swelling, hand pain, hand stiffness, hand swelling, hip pain, hip stiffness, hip swelling, knee pain, knee stiffness, knee swelling, shoulder pain, shoulder stiffness, shoulder swelling, wrist pain, wrist stiffness, wrist swelling Integumentary: Reports as per HPI Neurological: Reports as per HPI Psychiatric: Reports as per HPI Endocrine: Reports as per HPI Hematologic/Lymphatic: Reports as per HPI Allergic/Immunologic: Reports as per HPI Past Medical History Past Medical History: Asthma, COPD, Hyperlipidemia, Hypertension, Osteoarthritis (OA) Additional Past Medical History / Comment(s): back pain, kidney stone. History of Any Multi-Drug Resistant Organisms: None Reported Past Surgical History: Cholecystectomy Additional Past Surgical History / Comment(s): Carpal Tunnel Surgery - bilateral. Other - ovarian cyst removed. Lumpectomy - x 2 on right breast. Unlisted px meckel's dvrtclm - resection. Cholecystectomy. Appendectomy. Joint Replacement - bilateral knees and shoulder Past Anesthesia/Blood Transfusion Reactions: No Reported Reaction Past Psychological History: Anxiety Smoking Status: Former smoker Past Alcohol Use History: None Reported Past Drug Use History: None Reported - Past Family History Mother Family Medical History: No Reported History Sister(s) Family Medical History: Pulmonary Embolus Brother(s) Family Medical History: Cancer Medications and Allergies Home Medications Medication Instructions Recorded Confirmed Type Metoprolol Tartrate [Lopressor] 50 mg PO BID 08/20/17 12/30/23 History Pantoprazole Sodium 40 mg PO DAILY 08/20/17 12/30/23 History Pravastatin Sodium [Pravachol] 40 mg PO HS 08/20/17 12/30/23 History ALPRAZolam [Xanax] 0.25 mg PO BID PRN 12/30/23 12/30/23 History Albuterol Nebulized [Ventolin 2.5 mg INHALATION RT-TID 12/30/23 12/30/23 History Nebulized] Budesonide/Glycopyr/Formoterol 2 puff INHALATION RT-BID 12/30/23 12/30/23 History [Breztri Aerosphere Inhaler] Escitalopram [Lexapro] 10 mg PO DAILY 12/30/23 12/30/23 History Krill/Om-3/Dha/Epa/Phospho/Ast 1 cap PO DAILY 12/30/23 12/30/23 History [[place]-3 Krill Oil 300 mg Sfgl] Losartan Potassium [Cozaar] 100 mg PO DAILY 12/30/23 12/30/23 History Meloxicam [Mobic] 15 mg PO DAILY 12/30/23 12/30/23 History Multivit-Min/FA/Lycopen/Lutein 1 tab PO DAILY 12/30/23 12/30/23 History [Centrum Silver Tablet] Rosuvastatin [Crestor] 20 mg PO DAILY 12/30/23 12/30/23 History Ubidecarenone [Coenzyme Q10] 100 mg PO DAILY 12/30/23 12/30/23 History amLODIPine [Norvasc] 5 mg PO DAILY 12/30/23 12/30/23 History Allergies Allergy/AdvReac Type Severity Reaction Status Date / Time celecoxib [From Celebrex] Allergy Rash/Hives Verified 12/30/23 15:26 Physical Exam Vitals: Vital Signs Temp Pulse Resp BP Pulse Ox 12/30/23 15:23 99 12/30/23 15:14 100 12/30/23 14:51 98.7 F 99 20 146/79 98 12/30/23 12:36 101 H 12/30/23 12:23 94 12/30/23 11:43 96 20 164/75 98 Intake and Output 12/30/23 12/30/23 12/30/23 06:59 14:59 22:59 Other: Weight 90.718 kg The patient appeared well nourished and normally developed. Vital signs as documented. Head exam is unremarkable. No scleral icterus or corneal arcus noted. Neck is without jugular venous distension, thyromegaly, or carotid bruits. Carotid upstrokes are brisk bilaterally. Lungs are diminished bilaterally along with excessive expiratory wheezing throughout the lung mac bilaterally.. Cardiac exam reveals the PMI to be normally sized and situated. Rhythm is regular. First and second heart sounds normal. No murmurs, rubs or gallops. Abdominal exam reveals normal bowel sounds, no masses, no organomegaly and no aortic enlargement. Extremities are nonedematous and both femoral and pedal pulses are normal. Examination of the skin revealed no evidence of significant rashes, suspicious appearing nevi or other concerning lesions. Neurologically, the patient is awake and alert and the patient does not have any focal neurological deficit. Cranial nerves are essentially intact. Results - Laboratory Findings CBC and BMP: 12/30/23 12:07 12/30/23 12:07 PT/INR, D-dimer PT 10.8 sec (10.0-12.5) 12/30/23 12:07 INR 1.0 (<1.2) 12/30/23 12:07 Abnormal lab findings: Abnormal Labs 12/30/23 12/30/23 12:07 12:07 WBC 12.9 H RBC 2.78 L Hgb 7.6 L Hct 24.9 L MCHC 30.6 L RDW 16.2 H Neutrophils # 8.4 H Monocytes # 1.4 H Sodium 135 L Chloride 108 H BUN 20 H - Diagnostic Findings Chest x-ray: image reviewed Assessment and Plan Plan: Acute exacerbation of COPD/asthma. Chest x-ray is negative for any acute pulmonary infiltrates. Shortness of breath secondary to above History of [id number] smoking history Previous history of right lower lobe pneumonia, recovered Hypertension Hyperlipidemia Plan DuoNeb nebulized treatments [id number] IV Solu-Medrol IV Zithromax Check procalcitonin level Check viral panel Will continue to follow
[2023-12-30] MEDS: IPRATROPIUM-ALBUTEROL 3 ML NEB INHALATION PRN (20:56)
[2023-12-30 21:28] LABS: % Iron Saturation 2.96 (12.00-45.00); Ferritin 22.4 ng/mL (10.0-291.0)
[2023-12-31 09:04] LABS: Basophils # (A) 0.03 X 10*3/uL (0.00-0.10); Basophils % (A) 0.2 %; Eosinophils # (A) 0 X 10*3/uL (0.04-0.35); Eosinophils % (A) 0 %; HCT 24.1 % (37.2-46.3); HGB 7.4 g/dL (12.0-15.0); Lymphocytes # (A) 1.26 X 10*3/uL (0.90-5.00); Lymphocytes % (A) 10.1 %; MCH 27.7 pg (27.0-32.0); MCHC 30.7 g/dL (32.0-37.0); MCV 90.3 FL (80.0-97.0); Mean Platelet Volume 10.2 FL (9.5-12.2); Monocytes # (A) 0.38 X 10*3/uL (0.20-1.00); NRBC Per 100 WBC 0.02 X 10*3/uL (0.00-0.01); Neutrophils # (A) 10.57 X 10*3/uL (1.80-7.70); Neutrophils % (A) 84.9 %; Platelet Count 281 X 10*3/uL (140-440); RBC 2.67 X 10*6/uL (4.10-5.20); RDW 16.3 % (11.5-14.5); WBC 12.47 X 10*3/uL (4.50-10.00)
[2023-12-31 09:19] LABS: ALT 10 U/L (8-44); AST 13 U/L (13-35); Albumin 3.9 g/dL (3.8-4.9); Alkaline Phosphatase 68 U/L (41-126); BUN/Creat Ratio 25.38 Ratio (12.00-20.00); Blood Urea Nitrogen 20.3 mg/dL (9.0-27.0); Calcium 8.3 mg/dL (8.7-10.3); Carbon Dioxide 22.2 mmol/L (21.6-31.8); Chloride 102 mmol/L (96-109); Globulin 2.6 g/dL (1.6-3.3); Glucose 146 mg/dL (70-110); Phosphorus 3.4 mg/dL (2.4-5.1); Potassium 4.2 mmol/L (3.5-5.5); Sodium 138 mmol/L (135-145); Total Bilirubin <0.2 mg/dL (0.3-1.2); Total Protein 6.5 g/dL (6.2-8.2)
[2023-12-31] MEDS: MORPHINE SULFATE 4 MG/ML SYRINGE IV PRN (09:20)
--- NOTE | 2023-12-31 11:50 | P.GSCN ---
History of Present Illness Consult date: 12/31/23 History of present illness: CHIEF COMPLAINT: Shortness of breath HISTORY OF PRESENT ILLNESS: This is a 78-year-old female who presented to the hospital with complaints of shortness of breath. She is currently being treated for COPD exacerbation and did receive a dose of Lasix for fluid overload. Patient did have a hemoglobin of 7.6. She has been having occasional black stools over the last 2 months. She does report some epigastric and left upper quadrant abdominal pain. She does report pain after eating. She had been using Naprosyn for her arthritis and is now taking Mobic. She reports never having had an EGD before. Last colonoscopy 3 to 4 years ago and she thinks it was negative. Patient does also report some occasional light pink-tinged blood in t he toilet and felt that was likely due to her hemorrhoids. Patient also found to have low iron of 12. PAST MEDICAL HISTORY: asthma, COPD, Hyperlipidemia, Hypertension, Osteoarthritis (OA) PAST SURGICAL HISTORY: Cholecystectomy MEDICATIONS: See below ALLERGIES: See below SOCIAL HISTORY: No illicit drug use. REVIEW OF SYSTEMS: CONSTITUTIONAL: Denies fever or chills. HEENT: Denies blurred vision, vision changes, or eye pain. Denies hemoptysis CARDIOVASCULAR: Denies chest pain or pressure. RESPIRATORY: No shortness of breath. GASTROINTESTINAL: See HPI for pertinent findings HEMATOLOGIC: Denies bleeding disorders. GENITOURINARY: Denies any blood in urine or increased urinary frequency. SKIN: Denies pruitis. Denies rash. PHYSICAL EXAM: VITAL SIGNS: Reviewed GENERAL: Well-developed in no acute distress. HEENT: No sclera icterus. Extraocular movements grossly intact. Moist buccal mucosa. Head is atraumatic, normocephalic. No nasal drainage. ABDOMEN: Soft. Nondistended. Tenderness palpation epigastric area NEUROLOGIC: Alert and oriented. Cranial nerves II through XII grossly intact. LABORATORY DATA: WBC 12.47 Hgb 7.4 platelets 281 Sodium 138 potassium 4.2 creatinine 0.8 Total iron 12 IMAGING: Chest x-ray no acute pulmonary process ASSESSMENT: 1. Acute GI bleed likely upper. Patient with melanotic stools. Hemoglobin 7.4 2. Acute blood loss anemia likely due to GI bleed 3. Iron deficiency anemia 4. Daily NSAID use 5. COPD exacerbation. Followed by pulmonary service PLAN: -Patient scheduled for EGD tomorrow with Dr. Griffin -N.p.o. after midnight -Continue IV Protonix twice daily -No NSAIDs -Okay for regular diet today Physician Glacing Machine Tender note has been reviewed by physician. Signing provider agrees with the documented findings, assessment, and plan of care. Past Medical History Past Medical History: Asthma, COPD, Hyperlipidemia, Hypertension, Osteoarthritis (OA) Additional Past Medical History / Comment(s): back pain, kidney stone. History of Any Multi-Drug Resistant Organisms: None Reported Past Surgical History: Cholecystectomy Additional Past Surgical History / Comment(s): Carpal Tunnel Surgery - bilateral. Other - ovarian cyst removed. Lumpectomy - x 2 on right breast. Unlisted px meckel's dvrtclm - resection. Cholecystectomy. Appendectomy. Joint Replacement - bilateral knees and shoulder Past Anesthesia/Blood Transfusion Reactions: No Reported Reaction Past Psychological History: Anxiety Smoking Status: Former smoker Past Alcohol Use History: None Reported Past Drug Use History: None Reported - Past Family History Mother Family Medical History: No Reported History Sister(s) Family Medical History: Pulmonary Embolus Brother(s) Family Medical History: Cancer Medications and Allergies Home Medications Medication Instructions Recorded Confirmed Type Metoprolol Tartrate [Lopressor] 50 mg PO BID 08/20/17 12/30/23 History Pantoprazole Sodium 40 mg PO DAILY 08/20/17 12/30/23 History Pravastatin Sodium [Pravachol] 40 mg PO HS 08/20/17 12/30/23 History ALPRAZolam [Xanax] 0.25 mg PO BID PRN 12/30/23 12/30/23 History Albuterol Nebulized [Ventolin 2.5 mg INHALATION RT-TID 12/30/23 12/30/23 History Nebulized] Budesonide/Glycopyr/Formoterol 2 puff INHALATION RT-BID 12/30/23 12/30/23 History [Breztri Aerosphere Inhaler] Escitalopram [Lexapro] 10 mg PO DAILY 12/30/23 12/30/23 History Krill/Om-3/Dha/Epa/Phospho/Ast 1 cap PO DAILY 12/30/23 12/30/23 History [[place]-3 Krill Oil 300 mg Sfgl] Losartan Potassium [Cozaar] 100 mg PO DAILY 12/30/23 12/30/23 History Meloxicam [Mobic] 15 mg PO DAILY 12/30/23 12/30/23 History Multivit-Min/FA/Lycopen/Lutein 1 tab PO DAILY 12/30/23 12/30/23 History [Centrum Silver Tablet] Rosuvastatin [Crestor] 20 mg PO DAILY 12/30/23 12/30/23 History Ubidecarenone [Coenzyme Q10] 100 mg PO DAILY 12/30/23 12/30/23 History amLODIPine [Norvasc] 5 mg PO DAILY 12/30/23 12/30/23 History Allergies Allergy/AdvReac Type Severity Reaction Status Date / Time celecoxib [From Celebrex] Allergy Rash/Hives Verified 12/30/23 15:26 Surgical - Exam Vital Signs Pulse Resp BP Pulse Ox 96 20 164/75 98 12/30/23 11:43 12/30/23 11:43 12/30/23 11:43 12/30/23 11:43 Results - Labs 12/31/23 03:30 12/31/23 03:30 Abnormal Lab Results - Last 24 Hours (Table) 12/30/23 12/30/23 12/30/23 Range/Units 12:07 12:07 12:07 WBC 12.9 H (3.8-10.6) k/uL RBC 2.78 L (3.80-5.40) m/uL Hgb 7.6 L (11.4-16.0) gm/dL Hct 24.9 L (34.0-46.0) % MCHC 30.6 L (31.0-37.0) g/dL RDW 16.2 H (11.5-15.5) % Immature Gran # (0.00-0.04) X 10*3/uL Neutrophils # 8.4 H (1.3-7.7) k/uL Monocytes # 1.4 H (0-1.0) k/uL Eosinophils # (0.04-0.35) X 10*3/uL NRBC/100 WBC Diff (0.00-0.01) X 10*3/uL Sodium 135 L (137-145) mmol/L Chloride 108 H (98-107) mmol/L Anion Gap (4.00-12.00) mmol/L BUN 20 H (7-17) mg/dL BUN/Creatinine Ratio (12.00-20.00) Ratio Glucose (70-110) mg/dL Calcium (8.7-10.3) mg/dL Iron 12 L (50-170) UG/DL % Saturation 2.96 L (12.00-45.00) Total Bilirubin (0.3-1.2) mg/dL Albumin/Globulin Ratio (1.60-3.17) Ratio 12/31/23 12/31/23 Range/Units 03:30 03:30 WBC 12.47 H (3.8-10.6) k/uL RBC 2.67 L (3.80-5.40) m/uL Hgb 7.4 L (11.4-16.0) gm/dL Hct 24.1 L (34.0-46.0) % MCHC 30.7 L (31.0-37.0) g/dL RDW 16.3 H (11.5-15.5) % Immature Gran # 0.23 H (0.00-0.04) X 10*3/uL Neutrophils # 10.57 H (1.3-7.7) k/uL Monocytes # (0-1.0) k/uL Eosinophils # 0 L (0.04-0.35) X 10*3/uL NRBC/100 WBC Diff 0.02 H (0.00-0.01) X 10*3/uL Sodium (137-145) mmol/L Chloride (98-107) mmol/L Anion Gap 13.80 H (4.00-12.00) mmol/L BUN (7-17) mg/dL BUN/Creatinine Ratio 25.38 H (12.00-20.00) Ratio Glucose 146 H (70-110) mg/dL Calcium 8.3 L (8.7-10.3) mg/dL Iron (50-170) UG/DL % Saturation (12.00-45.00) Total Bilirubin <0.2 L (0.3-1.2) mg/dL Albumin/Globulin Ratio 1.50 L (1.60-3.17) Ratio Diabetes panel 12/30/23 12/31/23 Range/Units 12:07 03:30 Sodium 135 L 138 (137-145) mmol/L Potassium 4.4 4.2 (3.5-5.1) mmol/L Chloride 108 H 102 (98-107) mmol/L Carbon Dioxide 23 22.2 (22-30) mmol/L BUN 20 H 20.3 (7-17) mg/dL Creatinine 0.83 0.8 (0.52-1.04) mg/dL Glucose 86 146 H (74-99) mg/dL Calcium 8.6 8.3 L (8.4-10.2) mg/dL AST 19 13 (14-36) U/L ALT 11 10 (4-34) U/L Alkaline Phosphatase 67 68 (38-126) U/L Total Protein 6.4 6.5 (6.3-8.2) g/dL Albumin 3.8 3.9 (3.5-5.0) g/dL Calcium panel 12/30/23 12/31/23 Range/Units 12:07 03:30 Calcium 8.6 8.3 L (8.4-10.2) mg/dL Phosphorus 3.4 (2.4-5.1) mg/dL Albumin 3.8 3.9 (3.5-5.0) g/dL Pituitary panel 12/30/23 12/31/23 Range/Units 12:07 03:30 Sodium 135 L 138 (137-145) mmol/L Potassium 4.4 4.2 (3.5-5.1) mmol/L Chloride 108 H 102 (98-107) mmol/L Carbon Dioxide 23 22.2 (22-30) mmol/L BUN 20 H 20.3 (7-17) mg/dL Creatinine 0.83 0.8 (0.52-1.04) mg/dL Glucose 86 146 H (74-99) mg/dL Calcium 8.6 8.3 L (8.4-10.2) mg/dL Adrenal panel 12/30/23 12/31/23 Range/Units 12:07 03:30 Sodium 135 L 138 (137-145) mmol/L Potassium 4.4 4.2 (3.5-5.1) mmol/L Chloride 108 H 102 (98-107) mmol/L Carbon Dioxide 23 22.2 (22-30) mmol/L BUN 20 H 20.3 (7-17) mg/dL Creatinine 0.83 0.8 (0.52-1.04) mg/dL Glucose 86 146 H (74-99) mg/dL Calcium 8.6 8.3 L (8.4-10.2) mg/dL Total Bilirubin 0.5 <0.2 L (0.2-1.3) mg/dL AST 19 13 (14-36) U/L ALT 11 10 (4-34) U/L Alkaline Phosphatase 67 68 (38-126) U/L Total Protein 6.4 6.5 (6.3-8.2) g/dL Albumin 3.8 3.9 (3.5-5.0) g/dL
[2023-12-31] MEDS ORDERED: HYDROcodone/APAP 5-325MG 1 EACH TAB PO PRN (12:07)
[2023-12-31] MEDS: HYDROmorphone 0.5 MG/0.5 ML SYRINGE IVP PRN (12:17)
--- NOTE | 2023-12-31 12:50 | P.PN ---
Subjective Progress Note Date: 12/31/23 This is a 78-year-old female patient with known history of COPD maintained on B reztri on an outpatient basis. The patient is coming into the hospital because of worsening shortness of breath. She had increased cough chest tightness and wheezing and over the past few days the patient became progressively more short of breath. For that reason, she ended up coming into the hospital for further advice. Noted the patient is known to have COPD. Her COPD has been mild and she has not required much of maintenance respiratory medication. She is also known to have hypertension hyperlipidemia. Back in 2022, the patient was hospitalized at [facility] for right lower lobe pneumonia. She ultimately recovered from that. My last evaluation with her was back in January 2023 and she showed complete clearing of the right lung pneumonia. She had a calcified pulmonary granuloma which was of no significant significance. Her current white cell count is at 12.9 with a hemoglobin of 7.6 and a platelet count of 345. Normal renal function and normal electrolytes. proBNP level is 1780. Chest x-ray was done in the emergency showed no acute cardiopulmonary process. She is currently on room air oxygen with a pulse ox of 97%. 12/31/2023, the patient is complaining of chest wall pain, congestion, chest tightness and wheezing. She continues to be bronchospastic and wheezy and there is no much improvement since yesterday. She was given morphine which made her condition worse and this could have been related to a reaction to morphine. Otherwise, no other new complaints. Her procalcitonin level is 0.06. proBNP level is 1780. Troponins are negative. Electrolytes are all within normal limits. The white cell count of 12.4 with a hemoglobin 7.4 and a platelet count of 281. Her chest x-ray at the time of admission showed no acute abnormalities. The patient was seen by general surgery. There is a concern for a GI loss of blood as the patient has a component of anemia which is related to iron deficiency. Objective - Vital Signs Vital signs: Vital Signs Temp 98.7 F 12/30/23 14:51 Pulse 121 H 12/31/23 09:10 Resp 18 12/31/23 05:01 BP 160/88 12/31/23 05:01 Pulse Ox 96 12/31/23 08:59 FiO2 Intake & Output 09/12/31/23 12/31/23 18:59 06:59 18:59 Weight 90.718 kg - Exam The patient appeared well nourished and normally developed. Vital signs as documented. Head exam is unremarkable. No scleral icterus or corneal arcus noted. Neck is without jugular venous distension, thyromegaly, or carotid bruit s. Carotid upstrokes are brisk bilaterally. Lungs are diminished bilaterally along with excessive expiratory wheezing throughout the lung mac bilaterally.. Cardiac exam reveals the PMI to be normally sized and situated. Rhythm is regular. First and second heart sounds normal. No murmurs, rubs or gallops. Abdominal exam reveals normal bowel sounds, no masses, no organomegaly and no aortic enlargement. Extremities are nonedematous and both femoral and pedal pulses are normal. Examination of the skin revealed no evidence of significant rashes, suspicious appearing nevi or other concerning lesions. Neurologically, the patient is awake and alert and the patient does not have any focal neurological deficit. Cranial nerves are essentially intact. - Labs CBC & Chem 7: 12/31/23 03:30 12/31/23 03:30 Labs: Abnormal Lab Results - Last 24 Hours (Table) 12/30/23 12/30/23 12/30/23 Range/Units 12:07 12:07 12:07 WBC 12.9 H (3.8-10.6) k/uL RBC 2.78 L (3.80-5.40) m/uL Hgb 7.6 L (11.4-16.0) gm/dL Hct 24.9 L (34.0-46.0) % MCHC 30.6 L (31.0-37.0) g/dL RDW 16.2 H (11.5-15.5) % Immature Gran # (0.00-0.04) X 10*3/uL Neutrophils # 8.4 H (1.3-7.7) k/uL Monocytes # 1.4 H (0-1.0) k/uL Eosinophils # (0.04-0.35) X 10*3/uL NRBC/100 WBC Diff (0.00-0.01) X 10*3/uL Sodium 135 L (137-145) mmol/L Chloride 108 H (98-107) mmol/L Anion Gap (4.00-12.00) mmol/L BUN 20 H (7-17) mg/dL BUN/Creatinine Ratio (12.00-20.00) Ratio Glucose (70-110) mg/dL Calcium (8.7-10.3) mg/dL Iron 12 L (50-170) UG/DL % Saturation 2.96 L (12.00-45.00) Total Bilirubin (0.3-1.2) mg/dL Albumin/Globulin Ratio (1.60-3.17) Ratio 12/31/23 12/31/23 Range/Units 03:30 03:30 WBC 12.47 H (3.8-10.6) k/uL RBC 2.67 L (3.80-5.40) m/uL Hgb 7.4 L (11.4-16.0) gm/dL Hct 24.1 L (34.0-46.0) % MCHC 30.7 L (31.0-37.0) g/dL RDW 16.3 H (11.5-15.5) % Immature Gran # 0.23 H (0.00-0.04) X 10*3/uL Neutrophils # 10.57 H (1.3-7.7) k/uL Monocytes # (0-1.0) k/uL Eosinophils # 0 L (0.04-0.35) X 10*3/uL NRBC/100 WBC Diff 0.02 H (0.00-0.01) X 10*3/uL Sodium (137-145) mmol/L Chloride (98-107) mmol/L Anion Gap 13.80 H (4.00-12.00) mmol/L BUN (7-17) mg/dL BUN/Creatinine Ratio 25.38 H (12.00-20.00) Ratio Glucose 146 H (70-110) mg/dL Calcium 8.3 L (8.7-10.3) mg/dL Iron (50-170) UG/DL % Saturation (12.00-45.00) Total Bilirubin <0.2 L (0.3-1.2) mg/dL Albumin/Globulin Ratio 1.50 L (1.60-3.17) Ratio Assessment and Plan Plan: Acute exacerbation of COPD/asthma. Chest x-ray is negative for any acute pulmonary infiltrates. Still bronchospastic and wheezy and the patient is complaining of skeletal chest wall pain probably due to her coughing. Procalcitonin level is not elevated. Chest x-ray was negative for any acute pulmonary infiltrates. Currently on Zithromax. Chest wall pain secondary to above Acute hypoxic respiratory failure currently on 2 L of O2 nasal cannula Shortness of breath secondary to above History of [id number] smoking history Previous history of right lower lobe pneumonia, recovered Hypertension Hyperlipidemia Iron deficiency anemia Plan DuoNeb nebulized treatments [id number] IV Solu-Medrol 60 mg every 6 hours IV Zithromax and Rocephin 1 g every 24 hours Check procalcitonin level is not elevated Check viral panel is negative GI workup for any blood loss regarding iron deficiency anemia Respiratory status is still unstable. Will give her some Dilaudid for pain control 0.5 mg every 4-6 hours. Will add Mucinex. EGD and colonoscopy once she is more stable.
[2023-12-31] MEDS: guaiFENesin-DM 600/30MG 1 EACH TAB.ER.12H PO ONE (12:57)
--- NOTE | 2023-12-31 13:50 | P.PN ---
Subjective Progress Note Date: 12/31/23 Interval History: History of present illness: 78-year-old female with past medical history significant for asthma, COPD, hypertension, hyperlipidemia, kidney stones, osteoarthritis, back pain who was sent to the ER by the PCP due to concern for hypoxia and acute COPD exacerbation. Patient stated that she was having shortness of breath going on for more than a week which was progressively getting worse. Patient stated that for the last 2 days her breathing has gotten rapidly worse, patient also compla ined of productive cough with thick yellow sputum, denied any fever or chills. Patient reported swelling of the lower extremities, denied any orthopnea or PND. Patient denied any sore throat, sick contacts, chest pain, palpitations, nausea vomiting diarrhea constipation abdominal pain dysuria urgency frequency weakness or numbness of extremities. Patient also reported that she was noticing black- colored stools, with occasional red blood in the stools. Patient reported that she had colonoscopy about 10 years ago. In the ED patient was afebrile, heart rate 96, respiratory rate 20, blood pres sure 164/75, was saturating 98% on 2 L. WBC 12.9, hemoglobin 7.6 with no recent baseline, platelet 345. INR 1.0. Sodium 135, potassium 4.4, chloride 108, CO2 23, BUN 20, creatinine 0.83. LFTs unremarkable. Troponin negative. NT proBNP was elevated 1780. Chest x-ray negative for acute process. 12/31/23--patient was seen and examined today. Currently on room air. Complaining of shortness breath and wheezing, also complained of chest pain which is bilateral, radiating to left side of the neck and arm. Currently resolved. Cardiology consulted. Pulmonary following. Patient is afebrile, tachycardic, on room air, blood pressure 145/65. WBCs 12.4, hemoglobin 7.4, platelet 281. Normal BUN/creatinine. Pulmonary added Rocephin, patient already on Zithromax since yesterday. Chest pain got better with Dilaudid. General surgery planning for EGD tomorrow. Assessment and plan: Acute hypoxic respiratory failure: Acute COPD exacerbation: Acute diastolic CHF: Presented with progressive shortness of breath, productive cough. Chest x-ray negative for acute process. Continue DuoNeb, Pulmicort, Solu-Medrol Incentive spirometry, Mucinex. Azithromycin. Pulmonary consult. Anemia: Iron deficiency: Melena/hematochezia: Hemoglobin 7.6, no recent baseline Patient reported melena, occasional bright red blood in stools Check iron studies, B12, folate--iron deficiency, normal folate and B12 IV iron IV Protonix General Surgery consulted--plan for EGD tomorrow. Acute diastolic CHF: Chest pain: Patient appears fluid overloaded, bilateral crackles Elevated proBNP Check echocardiogram IV Lasix one-time dose 12/29 Cardiac diet Consulted cardiology for further evaluation of chest pain. Troponin negative. DVT prophylaxis SCD Monitor vital signs and labs Labs and medication were reviewed. Continue same treatment. Further recommendations as per clinical course of the patient PHYSICAL EXAMINATION: GENERAL: The patient is A&O x3, NAD HEENT: EOMI, Sclerae anicteric, Moist Mucous membranes Neck: Supple, Non tender, No JVD PULMONARY: Equal breath souds B/L, No wheezing, No crackles. CARDIOVASCULAR: S1, S2 present. No murmurs, rubs, or gallops. ABDOMEN: Soft, nontender, nondistended, normoactive bowel sounds. No guarding or rebound tenderness. MUSCULOSKELETAL: No edema, No cyanosis. No clubbing. Normal ROM. Intact peripheral pulses. EXTREMITIES: No cyanosis, clubbing, or pedal edema. NEUROLOGICAL: CN 2-12 grossly intact. No FND Skin: No Rash REVIEW OF SYSTEMS: CONSTITUTIONAL: No fever or chills. CARDIOVASCULAR: Complains of chest pain. PULMONARY: Planes of shortness of breath and wheezing, cough. GASTROINTESTINAL: No nausea, vomiting, diarrhea, abdominal pain. : No Dysuria, urgency, frequency. Extremities: No edema. NEUROLOGICAL: No headaches, no weakness, or numbness Dictation was produced using [employer] dictation software. please excuse any grammatical, word or spelling errors. Objective - Vital Signs Vital signs: Vital Signs Temp 98.7 F 12/30/23 14:51 Pulse 121 H 12/31/23 09:10 Resp 18 12/31/23 05:01 BP 160/88 12/31/23 05:01 Pulse Ox 96 12/31/23 08:59 FiO2 Intake & Output 12/30/23 12/31/23 12/31/23 18:59 06:59 18:59 Weight 90.718 kg - Labs CBC & Chem 7: 12/31/23 03:30 12/31/23 03:30 Labs: Abnormal Lab Results - Last 24 Hours (Table) 12/30/23 12/31/23 12/31/23 Range/Units 12:07 03:30 03:30 WBC 12.47 H (4.50-10.00) X 10*3/uL RBC 2.67 L (4.10-5.20) X 10*6/uL Hgb 7.4 L (12.0-15.0) g/dL Hct 24.1 L (37.2-46.3) % MCHC 30.7 L (32.0-37.0) g/dL RDW 16.3 H (11.5-14.5) % Immature Gran # 0.23 H (0.00-0.04) X 10*3/uL Neutrophils # 10.57 H (1.80-7.70) X 10*3/uL Eosinophils # 0 L (0.04-0.35) X 10*3/uL NRBC/100 WBC Diff 0.02 H (0.00-0.01) X 10*3/uL Anion Gap 13.80 H (4.00-12.00) mmol/L BUN/Creatinine Ratio 25.38 H (12.00-20.00) Ratio Glucose 146 H (70-110) mg/dL Calcium 8.3 L (8.7-10.3) mg/dL Iron 12 L (50-170) UG/DL % Saturation 2.96 L (12.00-45.00) Total Bilirubin <0.2 L (0.3-1.2) mg/dL Albumin/Globulin Ratio 1.50 L (1.60-3.17) Ratio
[2023-12-31] MEDS: guaiFENesin-DM 600/30MG 1 EACH TAB.ER.12H PO SCH ×2 (14:04→20:23)
[2023-12-31] MEDS: SODIUM FERRIC GLUCONAT-SUCROSE 125 MG in SODIUM CHLORIDE 0.9% 100 ML IVPB SCH (15:19)
[2023-12-31] MEDS: MELATONIN 1 MG TAB PO SCH (20:24)
[2024-01-01 06:44] LABS: African American GFR (CKD) >90 (>60 ml/min/1.73 sqM); Anion Gap 6 mmol/L; Blood Urea Nitrogen 19 mg/dL (7-17); Calcium 8.7 mg/dL (8.4-10.2); Carbon Dioxide 25 mmol/L (22-30); Chloride 107 mmol/L (98-107); Glucose 128 mg/dL (74-99); Non-African American GFR(CKD) 86 (>60 ml/min/1.73 sqM); Potassium 3.9 mmol/L (3.5-5.1); Sodium 138 mmol/L (137-145)
--- NOTE | 2024-01-01 06:52 | CA ---
Transthoracic Echo Report Name: Twyla Bell Age: 78 Gender: F : 1945 Exam Date: 12/31/2023 07:49 Exam Location: [facility] Ht (in): 66 Wt (lb): 200 Ordering Physician: Prasanna Davenport MD Attending/Referring Phys: Lead Software Engineer Jasmin Johnson RDCS Procedure CPT: Indications: chf Cardiac Hx: Technical Quality: Technically difficult study Contrast 1: Definity Total Dose (mL): 2 Contrast 2: Total Dose (mL): MEASUREMENTS (Male / Female) Normal Values 2D ECHO LV Diastolic Diameter PLAX 4.6 cm 4.2 - 5.9 / 3.9 - 5.3 cm LV Systolic Diameter PLAX 2.7 cm IVS Diastolic Thickness 1.1 cm 0.6 - 1.0 / 0.6 - 0.9 cm LVPW Diastolic Thickness 1.2 cm 0.6 - 1.0 / 0.6 - 0.9 cm LV Relative Wall Thickness 0.5 LA Volume 104.6 cm??? 18 - 58 / 22 - 52 cm??? LA Volume Index 50.1 cm???/m??? 16 - 28 cm???/m??? M-MODE Aortic Root Diameter MM 3.5 cm LA Systolic Diameter MM 3.9 cm LA Ao Ratio MM 1.1 DOPPLER AV Peak Velocity 231.9 cm/s AV Peak Gradient 21.5 mmHg AV Mean Velocity 167.3 cm/s AV Mean Gradient 12.7 mmHg AV Velocity Time Integral 47.1 cm LVOT Peak Velocity 111.7 cm/s LVOT Peak Gradient 5.0 mmHg LVOT Velocity Time Integral 21.6 cm MV Area PHT 7.4 cm??? Mitral E Point Velocity 220.1 cm/s Mitral A Point Velocity 1.0 cm/s Mitral E to A Ratio 217.4 MV Deceleration Time 102.7 ms FINDINGS Left Ventricle Mildly increased left ventricular wall thickness. Left ventricular cavity size normal. Normal left ventricular systolic function with no obvious regional wall motion abnormalities. Grade 1 diastolic dysfunction. Left ventricular ejection fraction is estimated at 55 %. Right Ventricle Normal right ventricular size and function. Right Atrium Right atrium not well visualized. Left Atrium Severely increased left atrial volume. Mildly increased left atrial area. Mitral Valve Structurally normal mitral valve. Mitral valve thickened. Mild mitral annular calcification.Moderate mitral regurgitation. Aortic Valve Mild aortic stenosis with a peak gradient of 22 mmHg and a mean gradient of 13 mmHg. No aortic regurgitation. Tricuspid Valve Tricuspid valve not well visualized. Mild tricuspid regurgitation. Pulmonic Valve Structurally normal pulmonic valve. Pericardium No pericardial effusion. Aorta Normal size aortic root and proximal ascending aorta. CONCLUSIONS Normal biventricular systolic function Thickened mitral valve leaflets with moderate mitral regurgitation Aortic sclerosis with mild stenosis and no regurgitation Previewed by: Dr. Bonifacio Osborne MD (Electronically Signed) Final Date: 01 January 2024 06:51
[2024-01-01 06:58] LABS: Anisocytosis Slight; Basophils % (A) 0 %; Eosinophils % (A) 0 %; HCT 23.9 % (34.0-46.0); HGB 7.5 gm/dL (11.4-16.0); Hypochromasia Moderate; Lymphocytes # (A) 1.5 k/uL (1.0-4.8); Lymphocytes % (A) 7 %; MCH 27.8 pg (25.0-35.0); MCHC 31.4 g/dL (31.0-37.0); MCV 88.5 fL (80.0-100.0); Monocytes # (A) 0.9 k/uL (0-1.0); Monocytes % (A) 4 %; Neutrophils # (A) 18.5 k/uL (1.3-7.7); Neutrophils % (A) 88 %; Platelet Count 345 k/uL (150-450); Poikilocytosis Slight; RDW 16.5 % (11.5-15.5); WBC 21.1 k/uL (3.8-10.6)
[2024-01-01] MEDS: ALBUTEROL NEBULIZED 2.5 MG/3 ML INHALATION PRN (07:44)
--- NOTE | 2024-01-01 09:36 | P.PN ---
Subjective 78-year-old female with past medical history significant for asthma, COPD, hypertension, hyperlipidemia, kidney stones, osteoarthritis, back pain who was sent to the ER by the PCP due to concern for hypoxia and acute COPD exacerbation. Patient stated that she was having shortness of breath going on for more than a week which was progressively getting worse. Patient stated that for the last 2 days her breathing has gotten rapidly worse, patient also complained of productive cough with thick yellow sputum, denied any fever or chills. Patient reported swelling of the lower extremities, denied any orthopnea or PND. Patient denied any sore throat, sick contacts, chest pain, palpitations, nausea vomiting diarrhea constipation abdominal pain dysuria urgency frequency weakness or numbness of extremities. Patient also reported that she was noticing black-colored stools, with occasional red blood in the stools. Patient reported that she had colonoscopy about 10 years ago. In the ED patient was afebrile, heart rate 96, respiratory rate 20, blood pressure 164/75, was saturating 98% on 2 L. WBC 12.9, hemoglobin 7.6 with no recent baseline, platelet 345. INR 1.0. Sodium 135, potassium 4.4, chloride 108, CO2 23, BUN 20, creatinine 0.83. LFTs unremarkable. Troponin negative. NT proBNP was elevated 1780. Chest x-ray negative for acute process. 12/31/23--patient was seen and examined today. Currently on room air. Complaining of shortness breath and wheezing, also complained of chest pain which is bilateral, radiating to left side of the neck and arm. Currently resolved. Cardiology consulted. Pulmonary following. Patient is afebrile, tachycardic, on room air, blood pressure 145/65. WBCs 12.4, hemoglobin 7.4, platelet 281. Normal BUN/creatinine. Pulmonary added Rocephin, patient already on Zithromax since yesterday. Chest pain got better with Dilaudid. General surgery planning for EGD tomorrow. 12/31 Patient is lying in bed looks comfortable, no distress No significant shortness of breath, wheezing improving No vomiting or bowel movement, no other evidence of bleeding. She still has chest pain about 6-7/10 in severity Patient is planned to undergo EGD today by surgery team Review of systems CONSTITUTIONAL: No fever, no malaise, no fatigue. HEENT: No recent visual problems or hearing problems. Denied any sore throat. CARDIOVASCULAR: No orthopnea, PND, no palpitations, no syncope. HEMATOLOGICAL: Denies any bleeding or petechiae. GENITOURINARY: Denies any burning micturition, frequency, or urgency. MUSCULOSKELETAL/RHEUMATOLOGICAL: Denies any joint pain, swelling, or any muscle pain. ENDOCRINE: Denies any polyuria or polydipsia. Active Medications Generic Name Dose Route Start Last Admin Trade Name Freq PRN Reason Stop Dose Admin Hydrocodone Bitart/Acetaminophen 1 each 12/31/23 12:07 Hydrocodone/Apap 5-325mg 1 Each Tab PO Q6HR PRN Pain Albuterol Sulfate 2.5 mg 12/30/23 13:45 01/01/24 07:44 Albuterol Nebulized 2.5 Mg/3 Ml INHALATION 2.5 mg RT-QID PRN Administration Shortness Of Breath Or Wheezing Albuterol/Ipratropium 3 ml 12/30/23 14:38 12/31/23 22:16 Ipratropium-Albuterol 3 Ml Neb INHALATION 3 ml RT-QID PRN Administration Shortness Of Breath Or Wheezing Amlodipine Besylate 5 mg 01/01/24 09:00 Amlodipine 5 Mg Tab PO DAILY SELVIN Budesonide 1 mg 12/30/23 15:00 01/01/24 07:44 Budesonide 1 Mg/2 Ml Nebu INHALATION 1 mg RT-BID SELVIN Administration Guaifenesin/Dextromethorphan 2 each 12/31/23 21:00 01/01/24 08:15 Guaifenesin-Dm 600/30mg 1 Each Tab.Er.12h PO 2 each Q12HR SELVIN Administration Hydromorphone HCl 0.5 mg 12/31/23 12:08 01/01/24 08:14 Hydromorphone 0.5 Mg/0.5 Ml Syringe IVP 0.5 mg Q6HR PRN Administration Pain Sodium Chloride 1,000 mls @ 75 mls/hr 12/30/23 13:45 01/01/24 05:48 Saline 0.9% IV 75 mls/hr .[id number] SELVIN Administration Azithromycin 500 mg/ Sodium 250 mls @ 250 mls/hr 12/30/23 15:00 01/01/24 08:14 Chloride IVPB 01/01/24 09:59 250 mls/hr DAILY SELVIN Administration Protocol Ferric Sodium Gluconate 125 mg 110 mls @ 100 mls/hr 12/31/23 10:30 12/31/23 15:19 / Sodium Chloride IVPB 01/05/24 10:29 100 mls/hr DAILY SELVIN Administration Ceftriaxone Sodium 1 gm/ 50 mls @ 100 mls/hr 12/31/23 12:15 01/01/24 09:36 Sodium Chloride IVPB 100 mls/hr Q24HR SELVIN Administration Protocol Losartan Potassium 100 mg 01/01/24 09:00 Losartan 50 Mg Tab PO DAILY SELVIN Melatonin 2 mg 12/31/23 21:00 12/31/23 20:24 Melatonin 1 Mg Tab PO 2 mg HS SELVIN Administration Methylprednisolone Sodium Succinate 60 mg 12/30/23 18:00 01/01/24 05:48 Methylprednisolone Sod Succi 125 Mg/2 Ml Vial IV 60 mg Q6HR SELVIN Administration Metoprolol Tartrate 50 mg 01/01/24 09:00 Metoprolol Tartrate 50 Mg Tab PO BID SELVIN Naloxone HCl 0.2 mg 12/30/23 13:45 Naloxone 0.4 Mg/Ml 1 Ml Vial IV Q2M PRN Opioid Reversal Ondansetron HCl 4 mg 12/30/23 13:45 Ondansetron 4 Mg/2 Ml Vial IVP Q8HR PRN Nausea And Vomiting Pantoprazole Sodium 40 mg 12/30/23 15:00 01/01/24 08:14 Pantoprazole 40 Mg/10 Ml Vial IVP 40 mg BID SELVIN Administration Pravastatin Sodium 40 mg 01/01/24 21:00 Pravastatin Sodium 40 Mg Tab PO HS [facility] Objective - Vital Signs Vital signs: Vital Signs Temp 97.2 F L 01/01/24 08:09 Pulse 116 H 01/01/24 08:09 Resp 16 01/01/24 08:09 BP 165/92 01/01/24 08:09 Pulse Ox 99 01/01/24 08:09 FiO2 Intake & Output 12/31/23 01/01/24 01/01/24 18:59 06:59 18:59 Weight 90.718 kg Other: # Voids 2 - Exam GENERAL: The patient is alert and oriented x3, not in any acute distress. Well developed, well nourished. HEENT: Pupils are round and equally reacting to light. EOMI. No scleral icterus. No conjunctival pallor. Normocephalic, atraumatic. No pharyngeal erythema. No thyromegaly. CARDIOVASCULAR: S1 and S2 present. No murmurs, rubs, or gallops. PULMONARY: Chest is clear to auscultation, no wheezing , no crackles. ABDOMEN: Soft, nontender, nondistended, normoactive bowel sounds. No palpable organomegaly. MUSCULOSKELETAL: No joint swelling or deformity. EXTREMITIES: No cyanosis, clubbing, or pedal edema. NEUROLOGICAL: Gross neurological examination did not reveal any focal deficits. SKIN: No rashes. no petechiae. - Labs CBC & Chem 7: 01/01/24 06:15 01/01/24 06:15 Labs: Abnormal Lab Results - Last 24 Hours (Table) 01/01/24 01/01/24 Range/Units 06:15 06:15 WBC 21.1 H (3.8-10.6) k/uL RBC 2.70 L (3.80-5.40) m/uL Hgb 7.5 L (11.4-16.0) gm/dL Hct 23.9 L (34.0-46.0) % RDW 16.5 H (11.5-15.5) % Neutrophils # 18.5 H (1.3-7.7) k/uL BUN 19 H (7-17) mg/dL Glucose 128 H (74-99) mg/dL Assessment and Plan Assessment: Acute COPD exacerbation Acute upper GI bleed Acute blood loss anemia Chest pain, rule out cardiac causes Leukocytosis secondary to steroid effect Plan: Patient currently on IV Solu-Medrol 60 mg Also on Zithromax and ceftriaxone. I think ceftriaxone can be discontinued by pulmonary team on the case Cardiology team consult Surgery team earlier evaluating the patient for upper GI bleed with plan for EGD on 12/31 Currently on Protonix no Antiplatelet therapy, but because of her GI bleed Labs and medication were reviewed.. Continue same treatment. Continue with sym ptomatic treatment. Resume home medication. Monitor labs and vitals. DVT and GI prophylaxis. Further recommendations as per clinical course of the patient DVT prophylaxis: Subcutaneous heparin GI Prophylaxis: Pepcid PT/OT: Pending Prognosis is guarded
--- NOTE | 2024-01-01 09:40 | P.CRDCN ---
History of Present Illness History of present illness: HISTORY OF PRESENT ILLNESS: This is a 78-year-old female with a past medical history significant for hypertension, hyperlipidemia, COPD, anxiety, and former nicotine dependence. Patient follows in the office with Dr. Elise. We have been asked to see the patient in consultation for CHF. Patient examined at the bedside. Patient states that she initially presented to the hospital with a chief complaint of shortness of breath. She also reports having a cough at home. She denied any chest pain when she initially came to the hospital. She states that she had a few episodes of chest pain since coming to the hospital. She reports one of her episodes were on Saturday and then had another episode on Saturday. She states that the sinter press operator came in and adjusted her meds and since then she has had no further episodes of chest pain. She thinks her chest pain may be attributed to her shortness of breath. Patient was found to be anemic with a hemoglobin of 7.5. She is not prescribed any blood thinners on an outpatient basis. She does report having some black stools at home but states that she was taking Pepto so she did not think much of it. She is scheduled to undergo EGD today with general surgery. DIAGNOSTICS: - EKG reveals sinus mechanism with no signs of acute ischemia - Chest xray negative for acute process - Laboratory data: WBC 21.1. Hemoglobin 7.5. Platelet count 345. Sodium 138. Potassium 3.9. BUN 19. Creatinine 0.62. Troponin negative x 1. proBNP 1780. - Current home cardiac medications include amlodipine 5 mg daily, losartan 100 mg daily, rosuvastatin 20 mg daily, metoprolol tartrate 50 mg twice a day, and Pravachol 40 mg at night - Echocardiogram obtained this admission reveals ejection fraction 55%, moderate MR, mild aortic stenosis with peak gradient 22 mmHg and mean gradient 13 mmHg -Patient underwent Lexiscan stress test in February 2023 which was negative for ischemia REVIEW OF SYSTEMS: At the time of my exam: CONSTITUTIONAL: Denies fever or chills. HEENT: Denies blurred vision, vision changes, or eye pain. Denies hemoptysis CARDIOVASCULAR: Denies chest pain. Denies orthopnea. Denies PND. Denies palpitations RESPIRATORY: Reports shortness of breath. GASTROINTESTINAL: Denies abdominal pain. Denies nausea or vomiting. HEMATOLOGIC: Denies bleeding disorders. GENITOURINARY: Denies any blood in urine. SKIN: Denies pruitis. Denies rash. PHYSICAL EXAM: VITAL SIGNS: Reviewed. GENERAL: Well-developed in no acute distress. HEENT: Head is normocephalic. Pupils are equal, round. Sclerae anicteric. Mucous membranes of the mouth are moist. Neck supple. Positive JVD LUNGS: Respirations even and unlabored. Lungs with expiratory wheezing noted HEART: Mildly tachycardic. Regular rate and rhythm. S1 and S2 heard. ABDOMEN: Soft. Nondistended. Nontender. EXTREMITIES: Normal range of motion. No clubbing or cyanosis. Peripheral pulses intact. No lower extremity edema NEUROLOGIC: Awake and alert. Oriented x 3. ASSESSMENT: Shortness of breath Acute GI bleed with melanotic stools Acute blood loss anemia Acute heart failure with preserved EF, mild exacerbation Chest pain, ACS ruled out, likely secondary to anemia and COPD Moderate mitral regurgitation Acute COPD exacerbation Former nicotine dependence Anxiety PLAN: 2D echo obtained and reviewed Resume home cardiac medications as patient is tachycardic and hypertensive this morning Begin IV Lasix 40 mg every 12 hours Daily weights, accurate intake and output, monitoring of kidney function Patient scheduled for EGD today with general surgery Further recommendations pending patient course Nurse practitioner note has been reviewed by physician. Signing provider agrees with the documented findings, assessment, and plan of care documented by PELLETIZER OPERATOR as a scribe. Past Medical History Past Medical History: Asthma, COPD, Hyperlipidemia, Hypertension, Osteoarthritis (OA) Additional Past Medical History / Comment(s): back pain, kidney stone. History of Any Multi-Drug Resistant Organisms: None Reported Past Surgical History: Cholecystectomy, Joint Replacement Additional Past Surgical History / Comment(s): Carpal Tunnel Surgery - bilateral. Other - ovarian cyst removed. Lumpectomy - x 2 on right breast. Unlisted px meckel's dvrtclm - resection. Cholecystectomy. Appendectomy. Joint Replacement - bilateral knees and shoulder Past Anesthesia/Blood Transfusion Reactions: No Reported Reaction Smoking Status: Former smoker - Past Family History Mother Family Medical History: No Reported History Sister(s) Family Medical History: Pulmonary Embolus Brother(s) Family Medical History: Cancer Medications and Allergies Home Medications Medication Instructions Recorded Confirmed Type Metoprolol Tartrate [Lopressor] 50 mg PO BID 08/20/17 12/30/23 History Pantoprazole Sodium 40 mg PO DAILY 08/20/17 12/30/23 History Pravastatin Sodium [Pravachol] 40 mg PO HS 08/20/17 12/30/23 History ALPRAZolam [Xanax] 0.25 mg PO BID PRN 12/30/23 12/30/23 History Albuterol Nebulized [Ventolin 2.5 mg INHALATION RT-TID 12/30/23 12/30/23 History Nebulized] Budesonide/Glycopyr/Formoterol 2 puff INHALATION RT-BID 12/30/23 12/30/23 History [Breztri Aerosphere Inhaler] Escitalopram [Lexapro] 10 mg PO DAILY 12/30/23 12/30/23 History Krill/Om-3/Dha/Epa/Phospho/Ast 1 cap PO DAILY 12/30/23 12/30/23 History [[place]-3 Krill Oil 300 mg Sfgl] Losartan Potassium [Cozaar] 100 mg PO DAILY 12/30/23 12/30/23 History Meloxicam [Mobic] 15 mg PO DAILY 12/30/23 12/30/23 History Multivit-Min/FA/Lycopen/Lutein 1 tab PO DAILY 12/30/23 12/30/23 History [Centrum Silver Tablet] Rosuvastatin [Crestor] 20 mg PO DAILY 12/30/23 12/30/23 History Ubidecarenone [Coenzyme Q10] 100 mg PO DAILY 12/30/23 12/30/23 History amLODIPine [Norvasc] 5 mg PO DAILY 12/30/23 12/30/23 History Allergies Allergy/AdvReac Type Severity Reaction Status Date / Time celecoxib [From Celebrex] Allergy Rash/Hives Verified 12/30/23 15:26 Physical Exam Vitals: Vital Signs Temp Pulse Pulse Resp BP Pulse Ox 01/01/24 08:09 97.2 F L 116 H 16 165/92 99 01/01/24 07:58 108 H 18 01/01/24 07:44 108 H 16 95 01/01/24 06:10 97.3 F L 90 153/84 01/01/24 02:00 97.3 F L 90 153/84 12/31/23 22:30 112 H 12/31/23 22:16 108 H 12/31/23 20:00 97.8 F 110 H 173/92 12/31/23 15:00 99 F 112 H 17 131/82 98 Intake and Output 12/31/23 01/01/24 01/01/24 22:59 06:59 14:59 Other: # Voids 1 2 Weight 90.718 kg Results 01/01/24 06:15 01/01/24 06:15 CBC 01/01/24 Range/Units 06:15 WBC 21.1 H (3.8-10.6) k/uL RBC 2.70 L (3.80-5.40) m/uL Hgb 7.5 L (11.4-16.0) gm/dL Hct 23.9 L (34.0-46.0) % Plt Count 345 (150-450) k/uL Comprehensive Metabolic Panel 01/01/24 Range/Units 06:15 Sodium 138 (137-145) mmol/L Potassium 3.9 (3.5-5.1) mmol/L Chloride 107 (98-107) mmol/L Carbon Dioxide 25 (22-30) mmol/L BUN 19 H (7-17) mg/dL Creatinine 0.62 (0.52-1.04) mg/dL Glucose 128 H (74-99) mg/dL Calcium 8.7 (8.4-10.2) mg/dL Current Medications Generic Name Dose Route Start Last Admin Trade Name Freq PRN Reason Stop Dose Admin Hydrocodone Bitart/Acetaminophen 1 each 12/31/23 12:07 Hydrocodone/Apap 5-325mg 1 Each Tab PO Q6HR PRN Pain Albuterol Sulfate 2.5 mg 12/30/23 13:45 01/01/24 07:44 Albuterol Nebulized 2.5 Mg/3 Ml INHALATION 2.5 mg RT-QID PRN Administration Shortness Of Breath Or Wheezing Albuterol/Ipratropium 3 ml 12/30/23 14:38 12/31/23 22:16 Ipratropium-Albuterol 3 Ml Neb INHALATION 3 ml RT-QID PRN Administration Shortness Of Breath Or Wheezing Amlodipine Besylate 5 mg 01/01/24 09:00 Amlodipine 5 Mg Tab PO DAILY SELVIN Budesonide 1 mg 12/30/23 15:00 01/01/24 07:44 Budesonide 1 Mg/2 Ml Nebu INHALATION 1 mg RT-BID SELVIN Administration Guaifenesin/Dextromethorphan 2 each 12/31/23 21:00 01/01/24 08:15 Guaifenesin-Dm 600/30mg 1 Each Tab.Er.12h PO 2 each Q12HR SELVIN Administration Hydromorphone HCl 0.5 mg 12/31/23 12:08 01/01/24 08:14 Hydromorphone 0.5 Mg/0.5 Ml Syringe IVP 0.5 mg Q6HR PRN Administration Pain Sodium Chloride 1,000 mls @ 75 mls/hr 12/30/23 13:45 01/01/24 05:48 Saline 0.9% IV 75 mls/hr .[id number] SELVIN Administration Azithromycin 500 mg/ Sodium 250 mls @ 250 mls/hr 12/30/23 15:00 01/01/24 08:14 Chloride IVPB 01/01/24 09:59 250 mls/hr DAILY SELVIN Administration Protocol Ferric Sodium Gluconate 125 mg 110 mls @ 100 mls/hr 12/31/23 10:30 12/31/23 15:19 / Sodium Chloride IVPB 01/05/24 10:29 100 mls/hr DAILY SELVIN Administration Ceftriaxone Sodium 1 gm/ 50 mls @ 100 mls/hr 12/31/23 12:15 12/31/23 12:15 Sodium Chloride IVPB 100 mls/hr Q24HR SELVIN Administration Protocol Losartan Potassium 100 mg 01/01/24 09:00 Losartan 50 Mg Tab PO DAILY SELVIN Melatonin 2 mg 12/31/23 21:00 12/31/23 20:24 Melatonin 1 Mg Tab PO 2 mg HS SELVIN Administration Methylprednisolone Sodium Succinate 60 mg 12/30/23 18:00 01/01/24 05:48 Methylprednisolone Sod Succi 125 Mg/2 Ml Vial IV 60 mg Q6HR SELVIN Administration Metoprolol Tartrate 50 mg 01/01/24 09:00 Metoprolol Tartrate 50 Mg Tab PO BID SELVIN Naloxone HCl 0.2 mg 12/30/23 13:45 Naloxone 0.4 Mg/Ml 1 Ml Vial IV Q2M PRN Opioid Reversal Ondansetron HCl 4 mg 12/30/23 13:45 Ondansetron 4 Mg/2 Ml Vial IVP Q8HR PRN Nausea And Vomiting Pantoprazole Sodium 40 mg 12/30/23 15:00 01/01/24 08:14 Pantoprazole 40 Mg/10 Ml Vial IVP 40 mg BID SELVIN Administration Pravastatin Sodium 40 mg 01/01/24 21:00 Pravastatin Sodium 40 Mg Tab PO HS SELVIN Intake and Output 12/31/23 01/01/24 01/01/24 22:59 06:59 14:59 Other: # Voids 1 2 Weight 90.718 kg 01/01/24 06:15 01/01/24 06:15
[2024-01-01] MEDS: METOPROLOL TARTRATE 50 MG TAB PO SCH (10:17)
[2024-01-01] MEDS: LOSARTAN 50 MG TAB PO SCH (10:17)
[2024-01-01] MEDS: amLODIPine 5 MG TAB PO SCH (10:19)
--- NOTE | 2024-01-01 11:05 | P.PN ---
Subjective Progress Note Date: 01/01/24 CHIEF COMPLAINT: Shortness of breath HISTORY OF PRESENT ILLNESS: Patient reporting improvement in her shortness of breath. She denies any black stools yesterday. Denies any nausea or vomiting. Denies any abdominal pain. Hemoglobin 7.5. WBC is up from 12-21. Patient is on steroids for her COPD. Patient seen by cardiology service and they are treating her for an acute CHF exacerbation. Afebrile. Mildly tachycardic. On room air 99%. PHYSICAL EXAM: VITAL SIGNS: Reviewed. GENERAL: Well-developed in no acute distress. ABDOMEN: Soft. Nondistended. Nontender. NEUROLOGIC: Alert and oriented. Cranial nerves II through XII grossly intact. ASSESSMENT: 1. Acute GI bleed likely upper. Patient with melanotic stools. Hemoglobin 7.4 2. Acute blood loss anemia likely due to GI bleed 3. Iron deficiency anemia 4. Daily NSAID use 5. COPD exacerbation. Followed by pulmonary service 6. Acute CHF exacerbation PLAN: -Patient's EGD canceled for today due to her pulmonary status. Pulmonary service has cleared her for EGD tomorrow. Patient seen by cardiology service they have cleared her to proceed with EGD -Patient scheduled for EGD tomorrow with Dr. Griffin -Patient can have a regular diet today -N.p.o. after midnight -Continue to hold NSAIDs -Continue IV Protonix -Continue to monitor hemoglobin Physician Warehouse Coordinator note has been reviewed by physician. Signing provider agrees with the documented findings, assessment, and plan of care. Objective - Vital Signs Vital signs: Vital Signs Temp 97.2 F L 01/01/24 08:09 Pulse 116 H 01/01/24 08:09 Resp 16 01/01/24 08:09 BP 165/92 01/01/24 08:09 Pulse Ox 99 01/01/24 08:09 FiO2 Intake & Output 12/31/23 01/01/24 01/01/24 18:59 06:59 18:59 Weight 90.718 kg Other: # Voids 2 - Labs CBC & Chem 7: 01/01/24 06:15 01/01/24 06:15 Labs: Abnormal Lab Results - Last 24 Hours (Table) 01/01/24 01/01/24 Range/Units 06:15 06:15 WBC 21.1 H (3.8-10.6) k/uL RBC 2.70 L (3.80-5.40) m/uL Hgb 7.5 L (11.4-16.0) gm/dL Hct 23.9 L (34.0-46.0) % RDW 16.5 H (11.5-15.5) % Neutrophils # 18.5 H (1.3-7.7) k/uL BUN 19 H (7-17) mg/dL Glucose 128 H (74-99) mg/dL
--- NOTE | 2024-01-01 11:09 | P.PN ---
Subjective Progress Note Date: 01/01/24 This is a 78-year-old female patient with known history of COPD maintained on B reztri on an outpatient basis. The patient is coming into the hospital because of worsening shortness of breath. She had increased cough chest tightness and wheezing and over the past few days the patient became progressively more short of breath. For that reason, she ended up coming into the hospital for further advice. Noted the patient is known to have COPD. Her COPD has been mild and she has not required much of maintenance respiratory medication. She is also known to have hypertension hyperlipidemia. Back in 2022, the patient was hospitalized at [facility] for right lower lobe pneumonia. She ultimately recovered from that. My last evaluation with her was back in January 2023 and she showed complete clearing of the right lung pneumonia. She had a calcified pulmonary granuloma which was of no significant significance. Her current white cell count is at 12.9 with a hemoglobin of 7.6 and a platelet count of 345. Normal renal function and normal electrolytes. proBNP level is 1780. Chest x-ray was done in the emergency showed no acute cardiopulmonary process. She is currently on room air oxygen with a pulse ox of 97%. 12/31/2023, the patient is complaining of chest wall pain, congestion, chest tightness and wheezing. She continues to be bronchospastic and wheezy and there is no much improvement since yesterday. She was given morphine which made her condition worse and this could have been related to a reaction to morphine. Otherwise, no other new complaints. Her procalcitonin level is 0.06. proBNP level is 1780. Troponins are negative. Electrolytes are all within normal limits. The white cell count of 12.4 with a hemoglobin 7.4 and a platelet count of 281. Her chest x-ray at the time of admission showed no acute abnormalities. The patient was seen by general surgery. There is a concern for a GI loss of blood as the patient has a component of anemia which is related to iron deficiency. 01/01/2024, the patient is feeling better. Chest pain has essentially subsided. Cough and congestion and wheezing has also subsided and the patient is feeling better. No altered mentation. She remains on DuoNeb. She remains on IV Rocephin. She remains on IV Lasix 40 mg every 12 hours. She is also on IV Solu-Medrol 60 mg every 6 hours. White cell count is 21, hemoglobin 7.5 and a platelet count is 345. Electrolytes are all within normal limits. She is currently on room air oxygen. Objective - Vital Signs Vital signs: Vital Signs Temp 97.2 F L 01/01/24 08:09 Pulse 116 H 01/01/24 08:09 Resp 16 01/01/24 08:09 BP 165/92 01/01/24 08:09 Pulse Ox 99 01/01/24 08:09 FiO2 Intake & Output 12/31/23 01/01/24 01/01/24 18:59 06:59 18:59 Weight 90.718 kg Other: # Voids 2 - Exam The patient appeared well nourished and normally developed. Vital signs as documented. Head exam is unremarkable. No scleral icterus or corneal arcus noted. Neck is without jugular venous distension, thyromegaly, or carotid bruits. Carotid upstrokes are brisk bilaterally. Lungs are diminished bilaterally along with excessive expiratory wheezing throughout the lung mac bilaterally.. Cardiac exam reveals the PMI to be normally sized and situated. Rhythm is regular. First and second heart sounds normal. No murmurs, rubs or gallops. Abdominal exam reveals normal bowel sounds, no masses, no organomegaly and no aortic enlargement. Extremities are nonedematous and both femoral and pedal pulses are normal. Examination of the skin revealed no evidence of significant rashes, suspicious appearing nevi or other concerning lesions. Neurologically, the patient is awake and alert and the patient does not have any focal neurological deficit. Cranial nerves are essentially intact. - Labs CBC & Chem 7: 01/01/24 06:15 01/01/24 06:15 Labs: Abnormal Lab Results - Last 24 Hours (Table) 01/01/24 01/01/24 Range/Units 06:15 06:15 WBC 21.1 H (3.8-10.6) k/uL RBC 2.70 L (3.80-5.40) m/uL Hgb 7.5 L (11.4-16.0) gm/dL Hct 23.9 L (34.0-46.0) % RDW 16.5 H (11.5-15.5) % Neutrophils # 18.5 H (1.3-7.7) k/uL BUN 19 H (7-17) mg/dL Glucose 128 H (74-99) mg/dL Assessment and Plan Plan: Acute exacerbation of COPD/asthma. Chest x-ray is negative for any acute pulmonary infiltrates. Still bronchospastic and wheezy and the patient is complaining of skeletal chest wall pain probably due to her coughing. Procalcitonin level is not elevated. Chest x-ray was negative for any acute pulmonary infiltrates. Clinically improving and the patient's shortness of breath has improved considerably since yesterday Chest wall pain secondary to above, improving Acute hypoxic respiratory failure currently on room air oxygen Shortness of breath secondary to above History of [id number] smoking history Previous history of right lower lobe pneumonia, recovered Hypertension Hyperlipidemia Iron deficiency anemia Plan DuoNeb nebulized treatments [id number] IV Solu-Medrol 60 mg every 6 hours Continue same antibiotic coverage Check procalcitonin level is not elevated Check viral panel is negative GI workup for any blood loss regarding iron deficiency anemia and the patient will have the scopes tomorrow Respiratory status is still unstable. Will give her some Dilaudid for pain control 0.5 mg every 4-6 hours. Mucinex EGD and colonoscopy tomorrow
[2024-01-01] MEDS: FUROSEMIDE 10 MG/ML 4 ML VIAL IV SCH (11:57)
[2024-01-01] MEDS: PRAVASTATIN SODIUM 40 MG TAB PO SCH (20:36)
--- NOTE | 2024-01-02 06:56 | P.PN ---
Subjective 78-year-old female with past medical history significant for asthma, COPD, hypertension, hyperlipidemia, kidney stones, osteoarthritis, back pain who was sent to the ER by the PCP due to concern for hypoxia and acute COPD exacerbation. Patient stated that she was having shortness of breath going on for more than a week which was progressively getting worse. Patient stated that for the last 2 days her breathing has gotten rapidly worse, patient also complained of productive cough with thick yellow sputum, denied any fever or chills. Patient reported swelling of the lower extremities, denied any orthopnea or PND. Patient denied any sore throat, sick contacts, chest pain, palpitations, nausea vomiting diarrhea constipation abdominal pain dysuria urgency frequency weakness or numbness of extremities. Patient also reported that she was noticing black-colored stools, with occasional red blood in the stools. Patient reported that she had colonoscopy about 10 years ago. In the ED patient was afebrile, heart rate 96, respiratory rate 20, blood pressure 164/75, was saturating 98% on 2 L. WBC 12.9, hemoglobin 7.6 with no recent baseline, platelet 345. INR 1.0. Sodium 135, potassium 4.4, chloride 108, CO2 23, BUN 20, creatinine 0.83. LFTs unremarkable. Troponin negative. NT proBNP was elevated 1780. Chest x-ray negative for acute process. 12/31/23--patient was seen and examined today. Currently on room air. Complaining of shortness breath and wheezing, also complained of chest pain which is bilateral, radiating to left side of the neck and arm. Currently resolved. Cardiology consulted. Pulmonary following. Patient is afebrile, tachycardic, on room air, blood pressure 145/65. WBCs 12.4, hemoglobin 7.4, platelet 281. Normal BUN/creatinine. Pulmonary added Rocephin, patient already on Zithromax since yesterday. Chest pain got better with Dilaudid. General surgery planning for EGD tomorrow. 12/31 Patient is lying in bed looks comfortable, no distress No significant shortness of breath, wheezing improving No vomiting or bowel movement, no other evidence of bleeding. She still has chest pain about 6-7/10 in severity Patient is planned to undergo EGD today by surgery team 01/01 Yesterday patient EGD procedure was canceled because of breathing difficulty This morning patient with no chest pain and she is breathing okay and quietly with good oxygen saturation and minimal cough Patient evaluated by pulmonary and cardiology service. Patient is most likely going for EGD today Patient is an acceptable risk to undergo this procedure today. Continue monitoring hemoglobin and vitals Review of systems CONSTITUTIONAL: No fever, no malaise, no fatigue. HEENT: No recent visual problems or hearing problems. Denied any sore throat. CARDIOVASCULAR: No orthopnea, PND, no palpitations, no syncope. PULMONARY: No shortness of breath, no cough, no hemoptysis. HEMATOLOGICAL: Denies any bleeding or petechiae. GENITOURINARY: Denies any burning micturition, frequency, or urgency. MUSCULOSKELETAL/RHEUMATOLOGICAL: Denies any joint pain, swelling, or any muscle pain. ENDOCRINE: Denies any polyuria or polydipsia. Active Medications Generic Name Dose Route Start Last Admin Trade Name Freq PRN Reason Stop Dose Admin Hydrocodone Bitart/Acetaminophen 1 each 12/31/23 12:07 Hydrocodone/Apap 5-325mg 1 Each Tab PO Q6HR PRN Pain Albuterol Sulfate 2.5 mg 12/30/23 13:45 01/01/24 07:44 Albuterol Nebulized 2.5 Mg/3 Ml INHALATION 2.5 mg RT-QID PRN Administration Shortness Of Breath Or Wheezing Albuterol/Ipratropium 3 ml 12/30/23 14:38 01/01/24 11:53 Ipratropium-Albuterol 3 Ml Neb INHALATION 3 ml RT-QID PRN Administration Shortness Of Breath Or Wheezing Amlodipine Besylate 5 mg 01/01/24 09:00 01/01/24 10:19 Amlodipine 5 Mg Tab PO 5 mg DAILY SELVIN Administration Budesonide 1 mg 12/30/23 15:00 01/01/24 20:31 Budesonide 1 Mg/2 Ml Nebu INHALATION 1 mg RT-BID SELVIN Administration Furosemide 40 mg 01/01/24 10:45 01/01/24 20:36 Furosemide 10 Mg/Ml 4 Ml Vial IV 40 mg Q12HR SELVIN Administration Guaifenesin/Dextromethorphan 2 each 12/31/23 21:00 01/01/24 20:36 Guaifenesin-Dm 600/30mg 1 Each Tab.Er.12h PO 2 each Q12HR SELVIN Administration Hydromorphone HCl 0.5 mg 12/31/23 12:08 01/01/24 08:14 Hydromorphone 0.5 Mg/0.5 Ml Syringe IVP 0.5 mg Q6HR PRN Administration Pain Sodium Chloride 1,000 mls @ 75 mls/hr 12/30/23 13:45 01/01/24 20:35 Saline 0.9% IV Not Given .[id number] SELVIN Ferric Sodium Gluconate 125 mg 110 mls @ 100 mls/hr 12/31/23 10:30 01/01/24 10:12 / Sodium Chloride IVPB 01/05/24 10:29 100 mls/hr DAILY SELVIN Administration Ceftriaxone Sodium 1 gm/ 50 mls @ 100 mls/hr 12/31/23 12:15 01/01/24 09:36 Sodium Chloride IVPB 100 mls/hr Q24HR SELVIN Administration Protocol Losartan Potassium 100 mg 01/01/24 09:00 01/01/24 10:17 Losartan 50 Mg Tab PO 100 mg DAILY SELVIN Administration Melatonin 2 mg 12/31/23 21:00 01/01/24 20:41 Melatonin 1 Mg Tab PO 2 mg HS SELVIN Administration Methylprednisolone Sodium Succinate 60 mg 12/30/23 18:00 01/02/24 06:11 Methylprednisolone Sod Succi 125 Mg/2 Ml Vial IV 60 mg Q6HR SELVIN Administration Metoprolol Tartrate 50 mg 01/01/24 09:00 01/01/24 20:36 Metoprolol Tartrate 50 Mg Tab PO 50 mg BID SELVIN Administration Naloxone HCl 0.2 mg 12/30/23 13:45 Naloxone 0.4 Mg/Ml 1 Ml Vial IV Q2M PRN Opioid Reversal Ondansetron HCl 4 mg 12/30/23 13:45 Ondansetron 4 Mg/2 Ml Vial IVP Q8HR PRN Nausea And Vomiting Pantoprazole Sodium 40 mg 12/30/23 15:00 01/01/24 20:36 Pantoprazole 40 Mg/10 Ml Vial IVP 40 mg BID SELVIN Administration Pravastatin Sodium 40 mg 01/01/24 21:00 01/01/24 20:36 Pravastatin Sodium 40 Mg Tab PO 40 mg HS SELVIN Administration Objective - Vital Signs Vital signs: Vital Signs Temp 98 F 01/01/24 14:50 Pulse 74 01/02/24 01:04 Resp 16 01/02/24 01:04 BP 158/83 01/02/24 01:04 Pulse Ox 95 01/02/24 01:04 FiO2 Intake & Output 01/01/24 01/01/24 01/02/24 06:59 18:59 06:59 Weight 90.718 kg Other: # Voids 2 - Exam GENERAL: The patient is alert and oriented x3, not in any acute distress. Well developed, well nourished. HEENT: Pupils are round and equally reacting to light. EOMI. No scleral icterus. No conjunctival pallor. Normocephalic, atraumatic. No pharyngeal erythema. No thyromegaly. CARDIOVASCULAR: S1 and S2 present. No murmurs, rubs, or gallops. PULMONARY: Chest is clear to auscultation, no wheezing , no crackles. ABDOMEN: Soft, nontender, nondistended, normoactive bowel sounds. No palpable organomegaly. MUSCULOSKELETAL: No joint swelling or deformity. EXTREMITIES: No cyanosis, clubbing, or pedal edema. NEUROLOGICAL: Gross neurological examination did not reveal any focal deficits. SKIN: No rashes. no petechiae. - Labs CBC & Chem 7: 01/01/24 06:15 01/01/24 06:15 Labs: Abnormal Lab Results - Last 24 Hours (Table) 01/01/24 Range/Units 06:15 WBC 21.1 H (3.8-10.6) k/uL RBC 2.70 L (3.80-5.40) m/uL Hgb 7.5 L (11.4-16.0) gm/dL Hct 23.9 L (34.0-46.0) % RDW 16.5 H (11.5-15.5) % Neutrophils # 18.5 H (1.3-7.7) k/uL Assessment and Plan Assessment: Acute COPD exacerbation Acute upper GI bleed Acute blood loss anemia Chest pain, rule out cardiac causes Leukocytosis secondary to steroid effect Plan: Patient currently on IV Solu-Medrol 60 mg Also on ceftriaxone. Cardiology team consult Pulmonary team consult Surgery team earlier evaluating the patient for upper GI bleed with plan for EGD on 01/01 Currently on Protonix twice daily no Antiplatelet therapy, but because of her GI bleed but will not be restarted Labs and medication were reviewed.. Continue same treatment. Continue with symptomatic treatment. Resume home medication. Monitor labs and vitals. DVT and GI prophylaxis. Further recommendations as per clinical course of the terrell ent DVT prophylaxis: no Subcutaneous heparin for risk of GI bleed GI Prophylaxis: Ppi PT/OT: Pending Prognosis is guarded
[2024-01-02 07:00] LABS: African American GFR (CKD) >90 (>60 ml/min/1.73 sqM); Anion Gap 5 mmol/L; Blood Urea Nitrogen 30 mg/dL (7-17); Calcium 8.7 mg/dL (8.4-10.2); Carbon Dioxide 34 mmol/L (22-30); Chloride 99 mmol/L (98-107); Glucose 120 mg/dL (74-99); Non-African American GFR(CKD) 82 (>60 ml/min/1.73 sqM); Potassium 3.7 mmol/L (3.5-5.1); Sodium 138 mmol/L (137-145)
[2024-01-02] MEDS: FUROSEMIDE 40 MG TAB PO SCH (08:35)
--- NOTE | 2024-01-02 10:04 | P.PN ---
Subjective HISTORY OF PRESENT ILLNESS: This is a 78-year-old female with a past medical history significant for hypertension, hyperlipidemia, COPD, anxiety, and former nicotine dependence. Patient follows in the office with Dr. Elise. We have been asked to see the patient in consultation for CHF. Patient examined at the bedside. Patient states that she initially presented to the hospital with a chief complaint of shortness of breath. She also reports having a cough at home. She denied any chest pain when she initially came to the hospital. She states that she had a few episodes of chest pain since coming to the hospital. She reports one of her episodes were on Saturday and then had another episode on Saturday. She states that the glass block installer came in and adjusted her meds and since then she has had no further episodes of chest pain. She thinks her chest pain may be attributed to her shortness of breath. Patient was found to be anemic with a hemoglobin of 7.5. She is not prescribed any blood thinners on an outpatient basis. She does report having some black stools at home but states that she was taking Pepto so she did not think much of it. She is scheduled to undergo EGD today with general surgery. DIAGNOSTICS: - EKG reveals sinus mechanism with no signs of acute ischemia - Chest xray negative for acute process - Laboratory data: WBC 21.1. Hemoglobin 7.5. Platelet count 345. Sodium 138. Potassium 3.9. BUN 19. Creatinine 0.62. Troponin negative x 1. proBNP 1780. - Current home cardiac medications include amlodipine 5 mg daily, losartan 100 mg daily, rosuvastatin 20 mg daily, metoprolol tartrate 50 mg twice a day, and Pravachol 40 mg at night - Echocardiogram obtained this admission reveals ejection fraction 55%, moderate MR, mild aortic stenosis with peak gradient 22 mmHg and mean gradient 13 mmHg -Patient underwent Lexiscan stress test in February 2023 which was negative for ischemia 01/02/2024 Patient examined this morning at the bedside. Patient currently denies chest pain or pressure. She denies shortness of breath. She remains on IV diuretics. She is scheduled to undergo EGD today. PHYSICAL EXAM: VITAL SIGNS: Reviewed. GENERAL: Well-developed in no acute distress. HEENT: Head is normocephalic. Pupils are equal, round. Sclerae anicteric. Mucous membranes of the mouth are moist. Neck supple. Positive JVD LUNGS: Respirations even and unlabored. Lungs with diminished breath sounds bila terally HEART: Regular rate and rhythm. S1 and S2 heard. ABDOMEN: Soft. Nondistended. Nontender. EXTREMITIES: Normal range of motion. No clubbing or cyanosis. Peripheral pulses intact. No lower extremity edema NEUROLOGIC: Awake and alert. Oriented x 3. ASSESSMENT: Shortness of breath Acute GI bleed with melanotic stools Acute blood loss anemia Acute heart failure with preserved EF, mild exacerbation Chest pain, ACS ruled out, likely secondary to anemia and COPD Moderate mitral regurgitation Acute COPD exacerbation Former nicotine dependence Anxiety PLAN: 2D echo obtained and reviewed Increase amlodipine to 10 mg daily for optimal blood pressure control Discontinue IV Lasix. Begin oral Lasix 40 mg daily Patient scheduled for EGD today with general surgery. Recommend cautious fluid administration during endoscopy. No further recommendations from a cardiac standpoint. We will sign off. Please reconsult if needed. Nurse practitioner note has been reviewed by physician. Signing provider agrees with the documented findings, assessment, and plan of care documented by LUMPIA WRAPPER MAKER as a scribe. Objective - Vital Signs Vital signs: Vital Signs Temp 97.4 F L 01/02/24 07:00 Pulse 90 01/02/24 08:33 Resp 16 01/02/24 07:00 BP 171/90 01/02/24 07:00 Pulse Ox 98 01/02/24 08:17 FiO2 - Labs CBC & Chem 7: 01/01/24 06:15 01/02/24 06:03 Labs: Abnormal Lab Results - Last 24 Hours (Table) 01/02/24 Range/Units 06:03 Carbon Dioxide 34 H (22-30) mmol/L BUN 30 H (7-17) mg/dL Glucose 120 H (74-99) mg/dL
[2024-01-02] MEDS: amLODIPine 5 MG TAB PO STA (11:10)
[2024-01-02] MEDS ORDERED: PROPOFOL 10 MG/ML 20 ML VIAL IV ONE (11:52)
[2024-01-02] MEDS: LACTATED RINGERS 1,000 ML IV ONE ×2 (11:54→12:03)
--- NOTE | 2024-01-02 12:04 | P.OP ---
Date of Procedure: 01/02/24 Preoperative Diagnosis: GI bleed Postoperative Diagnosis: Antral gastritis Hiatal hernia Esophagitis Procedure(s) Performed: EGD Anesthesia: MAC Surgeon: Tye Griffin Pathology: other (Antral, esophagus) Condition: stable Disposition: PACU Description of Procedure: The patient was placed on the endoscopy table in the lateral position. She received IV sedation. The David placed oropharynx passed in the esophagus and stomach. Scope was placed through the pylorus. The first and second portion of the duodenum appeared normal. Scope was brought back to the antrum this is mildly Flaim. A biopsy performed. The scope was then retroflexed the medial stomach appeared normal. There was a sliding hiatal hernia seen. The GE junction was at 38 cm. The distal esophagus appeared inflamed. A biopsy performed. The proximal esophagus appeared normal. The scope withdrawn for the patient. There was no active bleeding seen. Presume patient may have had bleeding from gastritis or esophagitis.
--- NOTE | 2024-01-02 19:54 | P.PN ---
Subjective Progress Note Date: 01/02/24 This is a 78-year-old female patient with known history of COPD maintained on B reztri on an outpatient basis. The patient is coming into the hospital because of worsening shortness of breath. She had increased cough chest tightness and wheezing and over the past few days the patient became progressively more short of breath. For that reason, she ended up coming into the hospital for further advice. Noted the patient is known to have COPD. Her COPD has been mild and she has not required much of maintenance respiratory medication. She is also known to have hypertension hyperlipidemia. Back in 2022, the patient was hospitalized at [facility] for right lower lobe pneumonia. She ultimately recovered from that. My last evaluation with her was back in January 2023 and she showed complete clearing of the right lung pneumonia. She had a calcified pulmonary granuloma which was of no significant significance. Her current white cell count is at 12.9 with a hemoglobin of 7.6 and a platelet count of 345. Normal renal function and normal electrolytes. proBNP level is 1780. Chest x-ray was done in the emergency showed no acute cardiopulmonary process. She is currently on room air oxygen with a pulse ox of 97%. 12/31/2023, the patient is complaining of chest wall pain, congestion, chest tightness and wheezing. She continues to be bronchospastic and wheezy and there is no much improvement since yesterday. She was given morphine which made her condition worse and this could have been related to a reaction to morphine. Otherwise, no other new complaints. Her procalcitonin level is 0.06. proBNP level is 1780. Troponins are negative. Electrolytes are all within normal limits. The white cell count of 12.4 with a hemoglobin 7.4 and a platelet count of 281. Her chest x-ray at the time of admission showed no acute abnormalities. The patient was seen by general surgery. There is a concern for a GI loss of blood as the patient has a component of anemia which is related to iron deficiency. 01/01/2024, the patient is feeling better. Chest pain has essentially subsided. Cough and congestion and wheezing has also subsided and the patient is feeling better. No altered mentation. She remains on DuoNeb. She remains on IV Rocephin. She remains on IV Lasix 40 mg every 12 hours. She is also on IV Solu-Medrol 60 mg every 6 hours. White cell count is 21, hemoglobin 7.5 and a platelet count is 345. Electrolytes are all within normal limits. She is currently on room air oxygen. On 01/02/2024, patient is being seen for a follow-up. Breathing status is stable. The patient underwent EGD today and the patient was found to have antral gastritis and hiatal hernia and some degree of esophagitis. Otherwise, no other new complaints. No evidence of an acute GI bleed. Hemoglobin from yesterday was at 7.5. Rest of the electrolytes are all within normal limits. The patient is resting comfortably in bed. No significant difficulty breathing. No chest pain. Rest of the vitals are all stable. Objective - Vital Signs Vital signs: Vital Signs Temp 98.1 F 01/02/24 17:56 Pulse 81 01/02/24 17:56 Resp 17 01/02/24 17:56 BP 135/73 01/02/24 17:56 Pulse Ox 94 L 01/02/24 17:56 FiO2 Intake & Output 01/02/24 01/02/24 01/03/24 06:59 18:59 06:59 Intake Total 200 Balance 200 Intake: IV 200 Other: # Voids 1 - Exam The patient appeared well nourished and normally developed. Vital signs as documented. Head exam is unremarkable. No scleral icterus or corneal arcus noted. Neck is without jugular venous distension, thyromegaly, or carotid bruits. Carotid upstrokes are brisk bilaterally. Lungs are diminished bilaterally along with excessive expiratory wheezing throughout the lung mac bilaterally.. Cardiac exam reveals the PMI to be normally sized and situated. Rhythm is regular. First and second heart sounds normal. No murmurs, rubs or gallops. Abdominal exam reveals normal bowel sounds, no masses, no organomegaly and no aortic enlargement. Extremities are nonedematous and both femoral and pedal pulses are normal. Examination of the skin revealed no evidence of significant rashes, suspicious appearing nevi or other concerning lesions. Neurologically, the patient is awake and alert and the patient does not have any focal neurological deficit. Cranial nerves are essentially intact. - Labs CBC & Chem 7: 01/01/24 06:15 01/02/24 06:03 Labs: Abnormal Lab Results - Last 24 Hours (Table) 01/02/24 Range/Units 06:03 Carbon Dioxide 34 H (22-30) mmol/L BUN 30 H (7-17) mg/dL Glucose 120 H (74-99) mg/dL Assessment and Plan Plan: Acute exacerbation of COPD/asthma. Chest x-ray is negative for any acute pulmonary infiltrates. Still bronchospastic and wheezy and the patient is complaining of skeletal chest wall pain probably due to her coughing. Procalcitonin level is not elevated. Chest x-ray was negative for any acute pulmonary infiltrates. Clinically improving and the patient's shortness of breath has improved considerably since yesterday Chest wall pain secondary to above, improving Acute hypoxic respiratory failure currently on room air oxygen Shortness of breath secondary to above History of [id number] smoking history Previous history of right lower lobe pneumonia, recovered Hypertension Hyperlipidemia Iron deficiency anemia, EGD showed antral gastritis, esophagitis and hiatal he rnia. No evidence of any acute bleeding. Plan Results of the EGD noted DuoNeb nebulized treatments [id number] IV Solu-Medrol 60 mg every 6 hours, will start tapering the steroids as of tomorrow. Continue same antibiotic coverage Check procalcitonin level is not elevated Check viral panel is negative Respiratory status is still stable.
[2024-01-03 06:50] LABS: Anisocytosis Slight; HCT 25.1 % (34.0-46.0); HGB 8.1 gm/dL (11.4-16.0); Hypochromasia Marked; MCH 28.1 pg (25.0-35.0); MCHC 32.1 g/dL (31.0-37.0); MCV 87.7 fL (80.0-100.0); Mean Platelet Volume 7.1; Platelet Count 411 k/uL (150-450); RBC 2.86 m/uL (3.80-5.40); RDW 16.8 % (11.5-15.5); WBC 19.1 k/uL (3.8-10.6)
[2024-01-03] MEDS: amLODIPine 10 MG TAB PO SCH (09:20)
[2024-01-03 11:06] LABS: BUN/Creat Ratio 32.56 Ratio (12.00-20.00); Blood Urea Nitrogen 29.3 mg/dL (9.0-27.0); Calcium 8.4 mg/dL (8.7-10.3); Carbon Dioxide 28.2 mmol/L (21.6-31.8); Chloride 98 mmol/L (96-109); Glucose 127 mg/dL (70-110); Potassium 3.6 mmol/L (3.5-5.5); Sodium 139 mmol/L (135-145)
--- NOTE | 2024-01-03 13:51 | P.PN ---
Subjective Progress Note Date: 01/03/24 CHIEF COMPLAINT: Shortness of breath HISTORY OF PRESENT ILLNESS: Patient has no new complaints. She is status post EGD which had reported gastritis, hiatal hernia and esophagitis. Patient is tolerating diet. Denies any nausea or vomiting. Denies any further black stools. Hemoglobin has gone up from 7.5-8.1. She reports her breathing is better. PHYSICAL EXAM: VITAL SIGNS: Reviewed. GENERAL: Well-developed in no acute distress. ABDOMEN: Soft. Nondistended. Nontender. NEUROLOGIC: Alert and oriented. Cranial nerves II through XII grossly intact. ASSESSMENT: 1. Acute GI bleed with melanotic stools status post EGD revealing gastritis, hiatal hernia and esophagitis. Presumed bleeding from gastritis or esophagitis 2. Acute blood loss anemia likely due to GI bleed 3. Iron deficiency anemia 4. Daily NSAID use 5. COPD exacerbation. Followed by pulmonary service 6. Acute CHF exacerbation PLAN: -Patient can be discharged from surgical standpoint -Continue Protonix daily -Recommend avoiding NSAIDs Physician Dock Boss note has been reviewed by physician. Signing provider agrees with the documented findings, assessment, and plan of care. Objective - Vital Signs Vital signs: Vital Signs Temp 98.3 F 01/03/24 07:22 Pulse 69 01/03/24 09:26 Resp 16 01/03/24 09:26 BP 152/81 01/03/24 07:22 Pulse Ox 96 01/03/24 08:15 FiO2 Intake & Output 01/02/24 01/03/24 01/03/24 18:59 06:59 18:59 Intake Total 200 Balance 200 Weight 91.8 kg Intake: IV 200 Other: # Voids 1 3 - Labs CBC & Chem 7: 01/03/24 06:00 01/03/24 06:00 Labs: Abnormal Lab Results - Last 24 Hours (Table) 01/03/24 01/03/24 Range/Units 06:00 06:00 WBC 19.1 H (3.8-10.6) k/uL RBC 2.86 L (3.80-5.40) m/uL Hgb 8.1 L (11.4-16.0) gm/dL Hct 25.1 L (34.0-46.0) % RDW 16.8 H (11.5-15.5) % Anion Gap 12.80 H (4.00-12.00) mmol/L BUN 29.3 H (9.0-27.0) mg/dL BUN/Creatinine Ratio 32.56 H (12.00-20.00) Ratio Glucose 127 H (70-110) mg/dL Calcium 8.4 L (8.7-10.3) mg/dL
--- NOTE | 2024-01-03 14:52 | P.PN ---
Subjective Progress Note Date: 01/03/24 This is a 78-year-old female patient with known history of COPD maintained on B reztri on an outpatient basis. The patient is coming into the hospital because of worsening shortness of breath. She had increased cough chest tightness and wheezing and over the past few days the patient became progressively more short of breath. For that reason, she ended up coming into the hospital for further advice. Noted the patient is known to have COPD. Her COPD has been mild and she has not required much of maintenance respiratory medication. She is also known to have hypertension hyperlipidemia. Back in 2022, the patient was hospitalized at [facility] for right lower lobe pneumonia. She ultimately recovered from that. My last evaluation with her was back in January 2023 and she showed complete clearing of the right lung pneumonia. She had a calcified pulmonary granuloma which was of no significant significance. Her current white cell count is at 12.9 with a hemoglobin of 7.6 and a platelet count of 345. Normal renal function and normal electrolytes. proBNP level is 1780. Chest x-ray was done in the emergency showed no acute cardiopulmonary process. She is currently on room air oxygen with a pulse ox of 97%. 12/31/2023, the patient is complaining of chest wall pain, congestion, chest tightness and wheezing. She continues to be bronchospastic and wheezy and there is no much improvement since yesterday. She was given morphine which made her condition worse and this could have been related to a reaction to morphine. Otherwise, no other new complaints. Her procalcitonin level is 0.06. proBNP level is 1780. Troponins are negative. Electrolytes are all within normal limits. The white cell count of 12.4 with a hemoglobin 7.4 and a platelet count of 281. Her chest x-ray at the time of admission showed no acute abnormalities. The patient was seen by general surgery. There is a concern for a GI loss of blood as the patient has a component of anemia which is related to iron deficiency. 01/01/2024, the patient is feeling better. Chest pain has essentially subsided. Cough and congestion and wheezing has also subsided and the patient is feeling better. No altered mentation. She remains on DuoNeb. She remains on IV Rocephin. She remains on IV Lasix 40 mg every 12 hours. She is also on IV Solu-Medrol 60 mg every 6 hours. White cell count is 21, hemoglobin 7.5 and a platelet count is 345. Electrolytes are all within normal limits. She is currently on room air oxygen. On 01/02/2024, patient is being seen for a follow-up. Breathing status is stable. The patient underwent EGD today and the patient was found to have antral gastritis and hiatal hernia and some degree of esophagitis. Otherwise, no other new complaints. No evidence of an acute GI bleed. Hemoglobin from yesterday was at 7.5. Rest of the electrolytes are all within normal limits. The patient is resting comfortably in bed. No significant difficulty breathing. No chest pain. Rest of the vitals are all stable. On today's evaluation of 01/03/2024, the patient is feeling well. Less bronchospastic and wheezy. No chest pain. No significant cough or sputum production. Remains on bronchodilators. Remains on IV Solu-Medrol 60 mg every 6 hours. Remains on IV Rocephin. Remains on Lasix 40 mg p.o. daily. EGD was done. Hemoglobin stable at rest of the electrolytes are all within normal limits. BUN is 29 with a creatinine of 0.9. The white cell count of 19. The patient remains on room air O2. Objective - Vital Signs Vital signs: Vital Signs Temp 98.3 F 01/03/24 07:22 Pulse 69 01/03/24 09:26 Resp 16 01/03/24 09:26 BP 152/81 01/03/24 07:22 Pulse Ox 96 01/03/24 08:15 FiO2 Intake & Output 01/02/24 01/03/24 01/03/24 18:59 06:59 18:59 Intake Total 200 Balance 200 Weight 91.8 kg Intake: IV 200 Other: # Voids 1 3 - Exam The patient appeared well nourished and normally developed. Vital signs as documented. Head exam is unremarkable. No scleral icterus or corneal arcus noted. Neck is without jugular venous distension, thyromegaly, or carotid bruits. Carotid upstrokes are brisk bilaterally. Lungs are diminished bilaterally along with excessive expiratory wheezing throughout the lung mac bilaterally.. Cardiac exam reveals the PMI to be normally sized and situated. Rhythm is regular. First and second heart sounds normal. No murmurs, rubs or gallops. Abdominal exam reveals normal bowel sounds, no masses, no organomegaly and no aortic enlargement. Extremities are nonedematous and both femoral and pedal pulses are normal. Examination of the skin revealed no evidence of significant rashes, suspicious appearing nevi or other concerning lesions. Neurologically, the patient is awake and alert and the patient does not have any focal neurological deficit. Cranial nerves are essentially intact. - Labs CBC & Chem 7: 01/03/24 06:00 01/03/24 06:00 Labs: Abnormal Lab Results - Last 24 Hours (Table) 01/03/24 01/03/24 Range/Units 06:00 06:00 WBC 19.1 H (3.8-10.6) k/uL RBC 2.86 L (3.80-5.40) m/uL Hgb 8.1 L (11.4-16.0) gm/dL Hct 25.1 L (34.0-46.0) % RDW 16.8 H (11.5-15.5) % Anion Gap 12.80 H (4.00-12.00) mmol/L BUN 29.3 H (9.0-27.0) mg/dL BUN/Creatinine Ratio 32.56 H (12.00-20.00) Ratio Glucose 127 H (70-110) mg/dL Calcium 8.4 L (8.7-10.3) mg/dL Assessment and Plan Plan: Acute exacerbation of COPD/asthma. Chest x-ray is negative for any acute pulmonary infiltrates. Still bronchospastic and wheezy and the patient is complaining of skeletal chest wall pain probably due to her coughing. Procalcitonin level is not elevated. Chest x-ray was negative for any acute pulmonary infiltrates. Clinically improving and the patient's shortness of breath has improved considerably since yesterday Chest wall pain secondary to above, improving Acute hypoxic respiratory failure currently on room air oxygen Shortness of breath secondary to above History of [id number] smoking history Previous history of right lower lobe pneumonia, recovered Hypertension Hyperlipidemia Iron deficiency anemia, EGD showed antral gastritis, esophagitis and hiatal hernia. No evidence of any acute bleeding. Plan Clinically improving, less bronchospastic and wheezy and will continue treatment for another 24 hours. Results of the EGD noted from yesterday DuoNeb nebulized treatments [id number] IV Solu-Medrol 60 mg every 6 hour to be continued Continue same antibiotic coverage Check procalcitonin level is not elevated Check viral panel is negative Respiratory status is gradually improving and will continue to follow.
--- NOTE | 2024-01-03 20:02 | P.PN ---
Subjective 78-year-old female with past medical history significant for asthma, COPD, hypertension, hyperlipidemia, kidney stones, osteoarthritis, back pain who was sent to the ER by the PCP due to concern for hypoxia and acute COPD exacerbation. Patient stated that she was having shortness of breath going on for more than a week which was progressively getting worse. Patient stated that for the last 2 days her breathing has gotten rapidly worse, patient also complained of productive cough with thick yellow sputum, denied any fever or chills. Patient reported swelling of the lower extremities, denied any orthopnea or PND. Patient denied any sore throat, sick contacts, chest pain, palpitations, nausea vomiting diarrhea constipation abdominal pain dysuria urgency frequency weakness or numbness of extremities. Patient also reported that she was noticing black-colored stools, with occasional red blood in the stools. Patient reported that she had colonoscopy about 10 years ago. In the ED patient was afebrile, heart rate 96, respiratory rate 20, blood pressure 164/75, was saturating 98% on 2 L. WBC 12.9, hemoglobin 7.6 with no recent baseline, platelet 345. INR 1.0. Sodium 135, potassium 4.4, chloride 108, CO2 23, BUN 20, creatinine 0.83. LFTs unremarkable. Troponin negative. NT proBNP was elevated 1780. Chest x-ray negative for acute process. 12/31/23--patient was seen and examined today. Currently on room air. Complaining of shortness breath and wheezing, also complained of chest pain which is bilateral, radiating to left side of the neck and arm. Currently resolved. Cardiology consulted. Pulmonary following. Patient is afebrile, tachycardic, on room air, blood pressure 145/65. WBCs 12.4, hemoglobin 7.4, platelet 281. Normal BUN/creatinine. Pulmonary added Rocephin, patient already on Zithromax since yesterday. Chest pain got better with Dilaudid. General surgery planning for EGD tomorrow. 12/31 Patient is lying in bed looks comfortable, no distress No significant shortness of breath, wheezing improving No vomiting or bowel movement, no other evidence of bleeding. She still has chest pain about 6-7/10 in severity Patient is planned to undergo EGD today by surgery team 01/01 Yesterday patient EGD procedure was canceled because of breathing difficulty This morning patient with no chest pain and she is breathing okay and quietly with good oxygen saturation and minimal cough Patient evaluated by pulmonary and cardiology service. Patient is most likely going for EGD today Patient is an acceptable risk to undergo this procedure today. Continue monitoring hemoglobin and vitals 01/03/2024 Patient breathing is improving Tachycardia is improving Leukocytosis is better at 19.1 while she is on steroids Chest x-ray is negative Still needs treatment for her COPD She is stable from general surgery point On a Protonix No NSAIDs Objective - Vital Signs Vital signs: Vital Signs Temp 98.2 F 01/03/24 14:17 Pulse 65 01/03/24 14:17 Resp 20 01/03/24 14:17 BP 112/65 01/03/24 14:17 Pulse Ox 94 L 01/03/24 14:17 FiO2 Intake & Output 01/02/24 01/03/24 01/03/24 18:59 06:59 18:59 Intake Total 200 Balance 200 Weight 91.8 kg Intake: IV 200 Other: # Voids 1 3 - Exam GENERAL: The patient is alert and oriented x3, not in any acute distress. Well developed, well nourished. HEENT: Pupils are round and equally reacting to light. EOMI. No scleral icterus. No conjunctival pallor. Normocephalic, atraumatic. No pharyngeal erythema. No thyromegaly. CARDIOVASCULAR: S1 and S2 present. No murmurs, rubs, or gallops. PULMONARY: Chest is clear to auscultation, no wheezing , no crackles. ABDOMEN: Soft, nontender, nondistended, normoactive bowel sounds. No palpable organomegaly. MUSCULOSKELETAL: No joint swelling or deformity. EXTREMITIES: No cyanosis, clubbing, or pedal edema. NEUROLOGICAL: Gross neurological examination did not reveal any focal deficits. SKIN: No rashes. no petechiae. - Labs CBC & Chem 7: 01/03/24 06:00 01/03/24 06:00 Labs: Abnormal Lab Results - Last 24 Hours (Table) 01/03/24 01/03/24 Range/Units 06:00 06:00 WBC 19.1 H (3.8-10.6) k/uL RBC 2.86 L (3.80-5.40) m/uL Hgb 8.1 L (11.4-16.0) gm/dL Hct 25.1 L (34.0-46.0) % RDW 16.8 H (11.5-15.5) % Anion Gap 12.80 H (4.00-12.00) mmol/L BUN 29.3 H (9.0-27.0) mg/dL BUN/Creatinine Ratio 32.56 H (12.00-20.00) Ratio Glucose 127 H (70-110) mg/dL Calcium 8.4 L (8.7-10.3) mg/dL Assessment and Plan Assessment: Acute COPD exacerbation Acute upper GI bleed. Status post EGD on 01/01 showing mild gastritis and esophagitis with no evidence of bleeding Acute blood loss anemia Chest pain, rule out cardiac causes Leukocytosis secondary to steroid effect Plan: Patient currently on IV Solu-Medrol 60 mg Also on ceftriaxone. Cardiology team consult Pulmonary team consult Surgery team earlier evaluating the patient for upper GI bleed with plan for EGD on 01/01. Patient cleared for discharge by surgery team Currently on Protonix twice daily no Antiplatelet therapy, but because of her GI bleed but will not be restarted. ALEXIS De La Cruz on discharge Labs and medication were reviewed.. Continue same treatment. Continue with symptomatic treatment. Resume home medication. Monitor labs and vitals. DVT and GI prophylaxis. Further recommendations as per clinical course of the patient DVT prophylaxis: no Subcutaneous heparin for risk of GI bleed GI Prophylaxis: Ppi PT/OT: Pending Prognosis is guarded
[2024-01-04 08:01] VITALS: BP 156/73; RESP 18; TEMP 97.5
[2024-01-04 08:48] VITALS: PULSE 92
--- NOTE | 2024-01-04 09:33 | P.PN ---
Subjective Progress Note Date: 01/04/24 Patient main stable. She underwent recent EGD shows evidence of esophagitis and gastritis. On exam vital signs are stable. Abdomen soft. Patient continue receive supportive care. Objective - Vital Signs Vital signs: Vital Signs Temp 97.5 F L 01/04/24 08:00 Pulse 92 01/04/24 08:47 Resp 18 01/04/24 08:00 BP 156/73 01/04/24 08:00 Pulse Ox 95 01/04/24 08:00 FiO2 Intake & Output 01/03/24 01/04/24 01/04/24 18:59 06:59 18:59 Weight 93.3 kg Other: # Voids 3 0 - Labs CBC & Chem 7: 01/03/24 06:00 01/03/24 06:00 Labs: Abnormal Lab Results - Last 24 Hours (Table) 01/03/24 Range/Units 06:00 Anion Gap 12.80 H (4.00-12.00) mmol/L BUN 29.3 H (9.0-27.0) mg/dL BUN/Creatinine Ratio 32.56 H (12.00-20.00) Ratio Glucose 127 H (70-110) mg/dL Calcium 8.4 L (8.7-10.3) mg/dL
[2024-01-04] MEDS: predniSONE 20 MG TAB PO SCH (10:35)
--- NOTE | 2024-01-04 15:02 | P.PN ---
Subjective Progress Note Date: 01/04/24 This is a 78-year-old female patient with known history of COPD maintained on B reztri on an outpatient basis. The patient is coming into the hospital because of worsening shortness of breath. She had increased cough chest tightness and wheezing and over the past few days the patient became progressively more short of breath. For that reason, she ended up coming into the hospital for further advice. Noted the patient is known to have COPD. Her COPD has been mild and she has not required much of maintenance respiratory medication. She is also known to have hypertension hyperlipidemia. Back in 2022, the patient was hospitalized at [facility] for right lower lobe pneumonia. She ultimately recovered from that. My last evaluation with her was back in January 2023 and she showed complete clearing of the right lung pneumonia. She had a calcified pulmonary granuloma which was of no significant significance. Her current white cell count is at 12.9 with a hemoglobin of 7.6 and a platelet count of 345. Normal renal function and normal electrolytes. proBNP level is 1780. Chest x-ray was done in the emergency showed no acute cardiopulmonary process. She is currently on room air oxygen with a pulse ox of 97%. 12/31/2023, the patient is complaining of chest wall pain, congestion, chest tightness and wheezing. She continues to be bronchospastic and wheezy and there is no much improvement since yesterday. She was given morphine which made her condition worse and this could have been related to a reaction to morphine. Otherwise, no other new complaints. Her procalcitonin level is 0.06. proBNP level is 1780. Troponins are negative. Electrolytes are all within normal limits. The white cell count of 12.4 with a hemoglobin 7.4 and a platelet count of 281. Her chest x-ray at the time of admission showed no acute abnormalities. The patient was seen by general surgery. There is a concern for a GI loss of blood as the patient has a component of anemia which is related to iron deficiency. 01/01/2024, the patient is feeling better. Chest pain has essentially subsided. Cough and congestion and wheezing has also subsided and the patient is feeling better. No altered mentation. She remains on DuoNeb. She remains on IV Rocephin. She remains on IV Lasix 40 mg every 12 hours. She is also on IV Solu-Medrol 60 mg every 6 hours. White cell count is 21, hemoglobin 7.5 and a platelet count is 345. Electrolytes are all within normal limits. She is currently on room air oxygen. On 01/02/2024, patient is being seen for a follow-up. Breathing status is stable. The patient underwent EGD today and the patient was found to have antral gastritis and hiatal hernia and some degree of esophagitis. Otherwise, no other new complaints. No evidence of an acute GI bleed. Hemoglobin from yesterday was at 7.5. Rest of the electrolytes are all within normal limits. The patient is resting comfortably in bed. No significant difficulty breathing. No chest pain. Rest of the vitals are all stable. On today's evaluation of 01/03/2024, the patient is feeling well. Less bronchospastic and wheezy. No chest pain. No significant cough or sputum production. Remains on bronchodilators. Remains on IV Solu-Medrol 60 mg every 6 hours. Remains on IV Rocephin. Remains on Lasix 40 mg p.o. daily. EGD was done. Hemoglobin stable at rest of the electrolytes are all within normal limits. BUN is 29 with a creatinine of 0.9. The white cell count of 19. The patient remains on room air O2. 01/04/2024, the patient is doing well. No significant complaints. Less short of breath. The patient has no bleeding complications. Hemoglobin stable at 8.1. Less bronchospastic and wheezy and the patient is currently on room air oxygen with a pulse ox of 95%. She remains on IV Solu-Medrol and this will be gradually weaned off. The patient will be started on prednisone burst taper today. No chest wall pain. Objective - Vital Signs Vital signs: Vital Signs Temp 97.5 F L 01/04/24 08:00 Pulse 92 01/04/24 08:47 Resp 18 01/04/24 08:00 BP 156/73 01/04/24 08:00 Pulse Ox 95 01/04/24 08:00 FiO2 Intake & Output 01/03/24 01/04/24 01/04/24 18:59 06:59 18:59 Weight 93.3 kg Other: # Voids 3 0 - Exam The patient appeared well nourished and normally developed. Vital signs as docum ented. Head exam is unremarkable. No scleral icterus or corneal arcus noted. Neck is without jugular venous distension, thyromegaly, or carotid bruits. Carotid upstrokes are brisk bilaterally. Lungs are diminished bilaterally along with excessive expiratory wheezing throughout the lung mac bilaterally.. Cardiac exam reveals the PMI to be normally sized and situated. Rhythm is regular. First and second heart sounds normal. No murmurs, rubs or gallops. Abdominal exam reveals normal bowel sounds, no masses, no organomegaly and no aortic enlargement. Extremities are nonedematous and both femoral and pedal pulses are normal. Examination of the skin revealed no evidence of significant rashes, suspicious appearing nevi or other concerning lesions. Neurologically, the patient is awake and alert and the patient does not have any focal neurological deficit. Cranial nerves are essentially intact. - Labs CBC & Chem 7: 01/03/24 06:00 01/03/24 06:00 Assessment and Plan Plan: Acute exacerbation of COPD/asthma, improving Chest wall pain secondary to above, improving Acute hypoxic respiratory failure currently on room air oxygen Shortness of breath secondary to above History of [id number] smoking history Previous history of right lower lobe pneumonia, recovered Hypertension Hyperlipidemia Iron deficiency anemia, EGD showed antral gastritis, esophagitis and hiatal hernia. No evidence of any acute bleeding. Plan Discontinued IV Solu-Medrol start the patient on prednisone burst taper Results of the EGD noted from yesterday DuoNeb nebulized treatments [id number] Check procalcitonin level is not elevated Check viral panel is negative Respiratory status is gradually improving and will continue to follow.
== END 2024-01-04 13:28 | disposition home or self-care (01) | DRG 190 ==
LOC: EC 11:42 → 6NMEDSUR 13:51 → 1SOBS 12-31 09:15 → OBSVTOIN 01-01 10:53 → 4SSUR 01-02 16:44
PROVIDERS: ADMIT Hospitalist; ATTEND Hospitalist
PROC: 0DB78ZX Excision of Stomach, Pylorus, Via Natural or Artificial Opening Endoscopic, Diagnostic (ICD-10-PCS; 2024-01-02)
PROC: 0DB38ZX Excision of Lower Esophagus, Via Natural or Artificial Opening Endoscopic, Diagnostic (ICD-10-PCS; principal; 2024-01-02 10:10)
DX: J44.1 Chronic obstructive pulmonary disease with (acute) exacerbation (principal); I50.31 Acute diastolic (congestive) heart failure; K20.91 Esophagitis, unspecified with bleeding; J96.01 Acute respiratory failure with hypoxia; K29.61 Other gastritis with bleeding; D62 Acute posthemorrhagic anemia; I11.0 Hypertensive heart disease with heart failure; D50.9 Iron deficiency anemia, unspecified; E78.5 Hyperlipidemia, unspecified; M19.90 Unspecified osteoarthritis, unspecified site; F41.9 Anxiety disorder, unspecified; K44.9 Diaphragmatic hernia without obstruction or gangrene; K64.9 Unspecified hemorrhoids; Z53.09 Procedure and treatment not carried out because of other contraindication; T38.0X5A Adverse effect of glucocorticoids and synthetic analogues, initial encounter; Z96.653 Presence of artificial knee joint, bilateral; Z96.612 Presence of left artificial shoulder joint; Z96.611 Presence of right artificial shoulder joint; Z87.891 Personal history of nicotine dependence; Z79.1 Long term (current) use of non-steroidal anti-inflammatories (NSAID); Z79.51 Long term (current) use of inhaled steroids; Z79.899 Other long term (current) drug therapy
CPT/HCPCS: 36415; 43239; 71045; 80048; 80053; 82607; 82728; 82746; 83540; 83550; 83735; 83880; 84100; 84145; 84484; 85025; 85027; 85610; 85730; 87636; 88305; 93005; 93306; 94640; 94760; 96365; 96366; 96375; 96376; 99291